=== PATIENT | female | born 1960 | race Asian ===

== ENCOUNTER 2022-02-07 14:15 | Emergency (ER) | payer OTHER, SELFPAY ==
[2022-02-07] VITALS (8 sets, daily range): BP systolic 122–204; BP diastolic 60–98; PULSE 78–98; RESP 16–24; TEMP 36.6; O2SAT 97–100
--- NOTE | 2022-02-07 14:23 | DI.RAD.S_ITS ---
PROCEDURE: XR CHEST 1V INDICATIONS: Shortness of breath TECHNIQUE: One view of the chest was acquired. COMPARISON: [facility], , CHEST 2 VIEW, 09/28/2015, 0:43. FINDINGS: Surgical changes and devices: None. Lungs and pleura: Lung volumes are slightly low. No dense consolidation or pleural effusions. Mediastinum: Heart size is at the upper limit of normal. Bones and chest wall: Scoliosis. Partially visualized gas distended loops of stomach and bowel. IMPRESSION: No acute radiographic abnormality. Low lung volumes. Partially seen prominent bowel gas. Dictated by: Cristo Rollins M.D. on 02/07/2022 at 15:21 Approved by: Cristo Rollins M.D. on 02/07/2022 at 15:22
--- NOTE | 2022-02-07 15:09 | PC.NURSE ---
Addendum entered by Chuck Thomas R.N. 02/07/22 15:11: Pt also has hx of asthma, no relief with her inhaler. RR 20. 98% on RA. Non-labored breathing. Original Note: Pt reports recent travel to [facility] with being sick since her return on 01/23/22. Pt has hx of htn, episodes of fast heart rate and type 2 diabetes.
[2022-02-07 15:16] LABS: Add Manual Diff / Slide Review NO; Basophils Absolute Auto 100 /uL (0-100); Basophils Percent Auto 0.9 % (0-2); Eosinophils Absolute Auto 200 /uL (0-450); Eosinophils Percent Auto 2.9 % (2-4); Hematocrit 36.2 % (36-46); Hemoglobin 12.3 g/dL (12.0-16.0); Lymphocytes Absolute Auto 2100 /uL (1100-4500); Lymphocytes Percent Auto 32.2 % (25-40); Mean Corpuscular Hemoglobin 29.5 PG (26-34); Mean Corpuscular Volume 86.7 fL (80-100); Monocytes Absolute Auto 500 /uL (0-900); Monocytes Percent Auto 7.5 % (3-14); Neutrophils Absolute Auto 3600 /uL (1500-7000); Neutrophils Percent Auto 56.5 % (50-75); Platelet Count 337 X10^3/uL (150-400); Red Blood Cell Count 4.18 X10^6/uL (4.0-5.2); Red Cell Distribution Width 13.6 % (11.6-14.8); White Blood Cell Count 6.4 X10^3/uL (4.5-11.0)
--- NOTE | 2022-02-07 15:24 | ED.GENADULT ---
HPI - General Adult General Chief complaint: Shortness of Breath/Dyspnea Stated complaint: coughing/inhaler not working/SOB/itchy throat Time Seen by Provider: 02/07/22 14:31 Source: patient and family Mode of arrival: Ambulatory History of Present Illness HPI narrative: Patient is a 61-year-old female. History of asthma. Is here for evaluation of wheezing, sinus congestion, postnasal drip, headache, body aches, itchy throat, shortness of breath. She is been using her albuterol inhaler which has not seemed to be working. Also having fevers. No skin rashes. Related Data Previous Rx's Medication Instructions Recorded prednisone 20 mg tablet 20 mg PO DAILY 6 days #6 tabs 02/07/22 Allergies Allergy/AdvReac Type Severity Reaction Status Date / Time erythromycin base Allergy Mild RASH Unverified 06/21/17 12:36 [From ERYTHROCIN] repaglinide [From PRANDIN] Allergy Mild UNSURE Unverified 06/21/17 12:36 Sulfa (Sulfonamide Allergy Mild HIVES Unverified 06/21/17 12:36 Antibiotics) [SULFA (SULFONAMIDE ANTIBIOTICS)] Review of Systems Review of Systems ROS Unobtainable: All systems reviewed & are unremarkable except as noted in HPI and below Patient History Medical History Asthma Social History Smoking Status: Never smoker Smoking Status: Never smoker alcohol intake frequency: a few times a month Substance Use Type: does not use Exam Initial Vital Signs Initial Vital Signs: Vital Signs Temperature 98 F 02/07/22 14:23 Pulse Rate 98 H 02/07/22 14:23 Respiratory Rate 18 02/07/22 14:23 Blood Pressure 204/98 H 02/07/22 14:23 Pulse Oximetry 98 02/07/22 14:23 Oxygen Delivery Method 02/07/22 14:23 Const General: cooperative, comfortable and No ill appearing HENMT Head: normal to inspection and normocephalic Mouth: oral mucosae normal Throat: posterior oropharynx normal Resp Effort & Inspection: normal respiratory effort Auscultation: clear to auscultation bilaterally Cardio Rate: regular rate Rhythm: regular rhythm GI Inspection: normal to inspection Skin General: no rashes or lesions noted Neuro General: patient alert, patient awake and moves all extremities Extrem General: normal to inspection and capillary refill normal Psych Appearance: grossly normal and well kempt Course Orders Ordered: ED Orders 02/07/22 14:23 XR chest 1V Stat EKG-12 Lead Stat Measure peak expiratory flow ONCE RT Consult Eval and Treat NOW 02/07/22 15:04 Complete Blood Count AUTO DIFF Stat Comprehensive Metabolic Panel Stat Covid-19 + FLU A/B + RSV - PCR Stat Troponin I Stat Prednisone (Prednisone 20 Mg Tablet) 20 mg PO NOW ONE Stop: 02/07/22 16:32 Vital Signs Vital signs: Vital Signs - 8 hr 02/07/22 14:23 02/07/22 14:59 02/07/22 15:00 Temperature 98 F Pulse Rate 98 H Respiratory Rate 18 Blood Pressure 204/98 H 180/77 H 174/79 H Pulse Oximetry 98 Oxygen Delivery Method Room Air 02/07/22 15:01 Temperature Pulse Rate 86 Respiratory Rate 16 Blood Pressure Pulse Oximetry 98 Oxygen Delivery Method Room Air Medical Decision Making Lab Data Lab results reviewed: Yes I reviewed the patient's lab results. Result diagrams: 02/07/22 15:04 02/07/22 15:04 Labs: Lab Results 02/07/22 02/07/22 02/07/22 Range/Units 15:04 15:04 15:04 WBC 6.4 (4.5-11.0) X10^3/uL RBC 4.18 (4.0-5.2) X10^6/uL Hgb 12.3 (12.0-16.0) g/dL Hct 36.2 (36-46) % MCV 86.7 (80-100) fL MCH 29.5 (26-34) PG MCHC 34.0 (30-36) % RDW 13.6 (11.6-14.8) % Plt Count 337 (150-400) X10^3/uL Neut % (Auto) 56.5 (50-75) % Lymph % (Auto) 32.2 (25-40) % [place]wsley % (Auto) 7.5 (3-14) % Eos % (Auto) 2.9 (2-4) % Baso % (Auto) 0.9 (0-2) % Neut # (Auto) 3600 (7081-3139) /uL Lymph # (Auto) 2100 (1383-8889) /uL [place]wsley # (Auto) 500 (0-900) /uL Eos # (Auto) 200 (0-450) /uL Baso # (Auto) 100 (0-100) /uL Sodium 137 (137-145) mmol/L Potassium 4.0 (3.4-5.1) mmol/L Chloride 99 (98-107) mmol/L Carbon Dioxide 31 (22-32) mmol/L BUN 18 H (7-17) mg/dL Creatinine 0.61 (0.52-1.04) mg/dL Estimated GFR > 60 (>60) mL/min BUN/Creatinine Ratio 29.5 H (6-22) Glucose 233 H (80-110) mg/dL Calcium 9.0 (8.4-10.2) mg/dL Total Bilirubin 0.2 (0.2-1.3) mg/dL AST 34 (14-36) IU/L ALT 34 (<35) IU/L Alkaline Phosphatase 66 (38-126) U/L Troponin I < 0.012 (0.01-0.034) ng/mL NT-Pro-B Natriuret Pep Cancelled Total Protein 7.4 (6.3-8.2) g/dL Albumin 4.1 (3.5-5.0) g/dL Globulin 3.3 (1.7-4.1) g/dL Albumin/Globulin Ratio 1.2 (1.0-2.8) SARS-CoV-2 (PCR) Negative (Negative) Influenza A (RT-PCR) Flu a negative (NEGATIVE) Influenza B (RT-PCR) Flu b negative (NEGATIVE) RSV (PCR) Negative (Negative) Imaging Data Chest x-ray: Radiologist's Impression: [address] [address] XRay Report Signed Patient: An Cueva MR#: [id number] : 1960 Acct:[id number] Age/Sex: 61 / F Date of Service: 02/07/22 Loc: ED Accession Number: [id number] ?? Procedure: XR chest 1V Ordering Provider: Bryce Hayes D.O. PROCEDURE:? XR CHEST 1V ? INDICATIONS:? Shortness of breath ? TECHNIQUE:? One view of the chest was acquired.? ? COMPARISON:? [facility], CR, CHEST 2 VIEW, 09/28/2015, 0:43. ? FINDINGS:? ? Surgical changes and devices:? None.? ? Lungs and pleura:? Lung volumes are slightly low.? No dense consolidation or pleural effusions. ? Mediastinum:? Heart size is at the upper limit of normal. ? Bones and chest wall:? Scoliosis.? Partially visualized gas distended loops of stomach and bowel. ? IMPRESSION:? No acute radiographic abnormality.? Low lung volumes.? Partially seen prominent bowel gas. ? ? Dictated by: Cristo Rollins M.D. on 02/07/2022 at 15:21 ? ? Approved by: Cristo Rollins M.D. on 02/07/2022 at 15:22?? ECG Data Attestation: I personally reviewed and interpreted this ECG as follows: Interpretation: Sinus rhythm Ventricular rate is 76 Normal axis Normal QRS Normal QTC No ST T wave changes MDM Narrative Medical decision making narrative: Lungs are clear, chest x-ray is unremarkable. Is well-appearing. He does have a history of asthma. No indication for antibiotics. Plan will be is to sent home with a couple days of steroids. She will continue to take the rest for medications as directed. She was given return precautions. She expressed understanding and agreement. Discharge Plan Departure Patient Disposition: Home Clinical Impression: Asthma Instructions: DI for Asthma -- Adult Activity Restrictions/Additional Instructions: Recommend that you continue to take all of your medications as directed. A prescription for steroids was sent to the [facility] pharmacy per your request. Start taking them tomorrow. Return to the emergency department for any new symptoms. Prescriptions: New prednisone 20 mg tablet 20 mg PO DAILY 6 Days Qty: 6 0RF Referrals: Provider,Maximo RAO [Primary Care Provider] -
[2022-02-07 15:35] LABS: Alanine Aminotransferase 34 IU/L (<35); Albumin 4.1 g/dL (3.5-5.0); Albumin Globulin Ratio 1.2 (1.0-2.8); Alkaline Phosphatase 66 U/L (38-126); Aspartate Aminotransferase 34 IU/L (14-36); BUN Creatinine Ratio 29.5 (6-22); Bilirubin Total 0.2 mg/dL (0.2-1.3); Blood Urea Nitrogen 18 mg/dL (7-17); Carbon Dioxide 31 mmol/L (22-32); Chloride 99 mmol/L (98-107); Estimated Glomerular Filt Rate > 60 mL/min (>60); Globulin 3.3 g/dL (1.7-4.1); Glucose 233 mg/dL (80-110); HEMOLYSIS < 15 (0-50); Sodium 137 mmol/L (137-145); Total Protein 7.4 g/dL (6.3-8.2)
[2022-02-07 15:45] LABS: Troponin I < 0.012 ng/mL (0.01-0.034)
[2022-02-07 15:57] LABS: COVID-19 CEPHEID 4-PLEX PCR Negative (Negative); Influenza A - CEPHEID Flu A NEGATIVE (NEGATIVE); Influenza B - CEPHEID Flu B NEGATIVE (NEGATIVE); Respiratory Syncytial Virus Negative (Negative)
[2022-02-07] MEDS: predniSONE 20 MG TABLET PO (16:43)
== END 2022-02-07 16:49 | disposition home or self-care (01) ==
PROVIDERS: Emergency Provider Emergency Medicine; Family Provider Internal Medicine
DX: J45.909 Unspecified asthma, uncomplicated (principal); Z20.822 Contact with and (suspected) exposure to COVID-19
CPT/HCPCS: 0241U; 36415; 71045; 80053; 84484; 85025; 93005; 99284

== ENCOUNTER 2022-03-24 15:36 | Observation (INO) | payer OTHER, SELFPAY ==
[2022-03-24] VITALS (13 sets, daily range): BP systolic 140–199; BP diastolic 61–88; PULSE 74–87; RESP 15–17; TEMP 36.1–36.5; O2SAT 98–100; BMI 23.6; BMI 22.4
[2022-03-24 16:06] LABS: Add Manual Diff / Slide Review NO; Basophils Absolute Auto 100 /uL (0-100); Basophils Percent Auto 1.3 % (0-2); Eosinophils Absolute Auto 200 /uL (0-450); Eosinophils Percent Auto 2.5 % (2-4); Hematocrit 37.5 % (36-46); Hemoglobin 12.7 g/dL (12.0-16.0); Lymphocytes Absolute Auto 3100 /uL (1100-4500); Lymphocytes Percent Auto 42.1 % (25-40); Mean Corpuscular HGB Conc 33.7 % (30-36); Monocytes Absolute Auto 500 /uL (0-900); Monocytes Percent Auto 7.1 % (3-14); Neutrophils Absolute Auto 3500 /uL (1500-7000); Platelet Count 339 X10^3/uL (150-400); Red Blood Cell Count 4.36 X10^6/uL (4.0-5.2); Red Cell Distribution Width 13.2 % (11.6-14.8); White Blood Cell Count 7.4 X10^3/uL (4.5-11.0)
[2022-03-24 16:07] LABS: Prothrombin Time 11.1 SECONDS (10.1-12.7)
[2022-03-24 16:10] LABS: PTT Partial Thromboplastin Tim 32 SECONDS (26-36)
[2022-03-24 16:12] LABS: Alanine Aminotransferase 28 IU/L (<35); Albumin 4.3 g/dL (3.5-5.0); Albumin Globulin Ratio 1.2 (1.0-2.8); Alkaline Phosphatase 66 U/L (38-126); Aspartate Aminotransferase 36 IU/L (14-36); Bilirubin Total 0.3 mg/dL (0.2-1.3); Blood Urea Nitrogen 16 mg/dL (7-17); Carbon Dioxide 26 mmol/L (22-32); Chloride 96 mmol/L (98-107); Estimated Glomerular Filt Rate > 60 mL/min (>60); Globulin 3.5 g/dL (1.7-4.1); Glucose 347 mg/dL (80-110); HEMOLYSIS < 15 (0-50); Potassium 3.9 mmol/L (3.4-5.1); Sodium 134 mmol/L (137-145); Total Protein 7.8 g/dL (6.3-8.2)
[2022-03-24] MEDS: ONDANSETRON 4 MG/2 ML INJ IV (16:34)
[2022-03-24] MEDS: PANTOPRAZOLE 40 MG VIAL 80 MG IV (16:34)
--- NOTE | 2022-03-24 16:45 | DI.CT.S_ITS ---
PROCEDURE: CT ABDOMEN PELVIS W CON INDICATIONS: R sided abdominal w/ back pain TECHNIQUE: After the administration of intravenous contrast, axial sections acquired from the lung bases to the pubic symphysis. Coronal and sagittal reformats were performed. For radiation dose reduction, the following was used: automated exposure control, adjustment of mA and/or kV according to patient size. COMPARISON: None. FINDINGS: Image quality: Excellent. Lung bases: Lung bases are clear. Small hiatal hernia. Heart: Heart size is normal. Coronary atherosclerotic vascular calcifications are noted. ABDOMEN: Liver: Unremarkable. Gallbladder: Unremarkable. Biliary ducts: Unremarkable. Pancreas: Unremarkable. Spleen: Unremarkable. Adrenal Glands: Unremarkable. Kidneys and Ureters: Kidneys are symmetric in size and enhancement, and there is no obstructive uropathy. No perinephric inflammatory changes. Ureters are normal in course and caliber. Stomach and Bowel: Stomach, small bowel loops, and colon are unremarkable. Colonic diverticulosis without acute diverticulitis. The visualized appendix appears mildly dilated in diameter measuring approximately 11 mm. Mild wall thickening. This measures approximately 3 mm in thickness. No significant periappendiceal stranding. Hyperdense material may represent small appendicoliths. Peritoneum: No abnormal intraperitoneal fluid. No free air. Ventral Wall: No hernia. Abdominal Nodes: No retroperitoneal or mesenteric adenopathy by size criteria. Vessels: Scattered atherosclerotic calcifications of the abdominal aorta and iliac vessels without aneurysmal dilatation. The inferior vena cava appears patent. PELVIS: Pelvic Organs: Unremarkable. Bladder: Unremarkable. Pelvic Nodes: No enlarged lymph nodes. Miscellaneous: No inguinal hernias are seen. Bones: No acute vertebral body compression fractures. Multilevel spondylitic changes throughout the imaged spine. No suspicious osseous lesions. Levoscoliosis. IMPRESSION: Mildly dilated appendix with appendiceal wall thickening. Minimal periappendiceal stranding. Findings may represent early developing acute appendicitis. Otherwise, no acute abnormalities identified in the abdomen or pelvis. Other chronic findings as above. Dictated by: Abel Estevez M.D. on 03/24/2022 at 18:10 Approved by: Abel Estevez M.D. on 03/24/2022 at 18:17
--- NOTE | 2022-03-24 16:49 | DI.CT.S_ITS ---
PROCEDURE: CT HEAD/BRAIN WO CON INDICATIONS: Dizziness TECHNIQUE: Noncontrast 4.5 mm thick angled axial sections acquired from the foramen magnum to the vertex, with coronal and sagittal reformats. For radiation dose reduction, the following was used: automated exposure control, adjustment of mA and/or kV according to patient size. COMPARISON: None. FINDINGS: Image quality: Excellent. CSF spaces: Basal cisterns are patent. No extra-axial fluid collections. The ventricles are symmetric in size and shape. Brain: No intracranial bleeds or masses. There is cerebral volume loss for age, with resultant ventricular and sulcal prominence. There are periventricular and deep white matter chronic small vessel ischemic changes. There is intracranial internal carotid artery atherosclerosis. Skull and face: Calvarium and visualized facial bones appear intact, without suspicious lesions. Artificial left globe is noted. Sinuses: Visualized sinuses and mastoids are clear. IMPRESSION: 1. CT head without acute intracranial abnormalities or acute calvarial fractures. 2. Age-related senescent changes and sequela of chronic small vessel ischemic disease. Dictated by: Abel Estevez M.D. on 03/24/2022 at 17:58 Approved by: Abel Estevez M.D. on 03/24/2022 at 17:59
--- NOTE | 2022-03-24 17:18 | ED.DIZZY ---
HPI - Dizziness <Sancho Weeks PA-C - Last Filed: 03/24/22 19:07> General Chief Complaint: Dizziness Stated Complaint: VERTIGO ISSUES Time Seen by Provider: 03/24/22 16:33 Source: patient Mode of arrival: Ambulatory History of Present Illness HPI Narrative: This is a 61-year-old female with a history of hypertension and asthma presents to the emergency department due to right-sided abdominal pain, back pain, vertigo. She states that the abdominal pain and back pain have been present for the last week intermittently. She also states that she has had vertigo in the past but is also complaining of this. States that she primarily feels lightheaded. Denies any nausea, vomiting, weakness, slurred speech, diarrhea, constipation, or any other concerning signs or symptoms. Patient states she is been taking your home blood pressure medications as prescribed. Related Data Home Medications Medication Instructions Recorded Confirmed albuterol sulfate 90 mcg/actuation 1 puff inhalation DAILY 03/24/22 03/24/22 aerosol inhaler (ProAir HFA) aspirin 81 mg tablet,delayed 81 mg PO DAILY 03/24/22 03/24/22 release brimonidine 0.1 % eye drops 1 drp EYE-BOTH DAILY 03/24/22 03/24/22 (Alphagan P) ciclopirox 8 % topical solution 1 applic topical DAILY rash 03/24/22 03/24/22 insulin glargine 100 unit/mL (3 See Rx Instructions .Route .COMPLEX 03/24/22 03/24/22 mL) subcutaneous pen (Lantus Solostar U-100 Insulin) lisinopril 40 mg tablet 40 mg PO DAILY 03/24/22 03/24/22 loratadine 10 mg tablet 10 mg PO DAILY 03/24/22 03/24/22 ofloxacin 0.3 % eye drops 1 drp EYE-BOTH DAILY 03/24/22 03/24/22 omeprazole 20 mg capsule,delayed 20 mg PO DAILY 03/24/22 03/24/22 release Allergies Allergy/AdvReac Type Severity Reaction Status Date / Time erythromycin base Allergy Mild RASH Verified 03/24/22 15:40 [From ERYTHROCIN] repaglinide [From PRANDIN] Allergy Mild UNSURE Verified 03/24/22 15:40 Sulfa (Sulfonamide Allergy Mild HIVES Verified 03/24/22 15:40 Antibiotics) [SULFA (SULFONAMIDE ANTIBIOTICS)] Review of Systems <Sancho Weeks PA-C - Last Filed: 03/24/22 19:07> Review of Systems Narrative: GENERAL: Denies chills, fatigue, malaise, fever, sweats. HEENT: Denies sinus pain, ear pain, sore throat, difficulty swallowing, dizziness. RESPIRATORY: Denies dyspnea, cough, wheezing, hemoptysis, sputum. CARDIOVASCULAR: Denies chest pain, palpitations, orthopnea, edema, GASTROINTESTINAL: Reports abdominal pain, Denies nausea, vomiting, diarrhea, constipation, melena. : Denies dysuria, frequency, incontinence, hematuria, urinary retention. MUSCULOSKELETAL: Reports back pain, denies weakness, joint pain, or bony pain SKIN: Denies rash, skin lesions, or other NEUROLOGIC: Reports dizziness and lightheadedness, Denies weakness, headache, numbness, change in speech, confusion, seizures, incoordination. PSYCHIATRIC: No concerning psychosocial issues. 12 point review of systems is negative except for those stated above Patient History <Sancho Weeks PA-C - Last Filed: 03/24/22 19:07> Medical History Asthma Surgical History (Updated 03/25/22 @ 06:27 by EHSAN Petty) History of cataract surgery Family History (Updated 03/25/22 @ 06:28 by EHSAN Petty) Father Diabetes mellitus Mother Diabetes mellitus Social History household members: spouse Smoking Status: Never smoker alcohol intake: current Smoking Status: Never smoker alcohol intake frequency: a few times a month Substance Use Type: does not use Exam <Sancho Weeks PA-C - Last Filed: 03/24/22 19:07> Narrative Exam Narrative: GENERAL: [] year old patient appears stated age. Well-developed patient, in mild distress. HEAD: Atraumatic. Normocephalic. EYES: Pupils equal round and reactive. Extraocular motions intact. No scleral icterus. No injection or drainage. ENT: Nose without bleeding, purulent drainage. Throat without erythema, tonsillar hypertrophy or exudate. Airway patent. NECK: Trachea midline. Non tender CARDIOVASCULAR: Regular rate and rhythm without murmurs, gallops, or rubs. RESPIRATORY: Clear to auscultation. Breath sounds equal bilaterally. No wheezes, rales, or rhonchi. GASTROINTESTINAL: Moderate right-sided abdominal tenderness to palpation, lumbar back tenderness to palpation EXTREMITIES: No edema or joint tenderness. BACK: Nontender without deformity or crepitance. No flank tenderness. NEURO: AOx3. Cranial nerves 2-12 intact. No focal weakness. SKIN: No rash or erythema of visible areas Initial Vital Signs Initial Vital Signs: Vital Signs Temperature 97.7 F 03/24/22 15:40 Pulse Rate 81 03/24/22 15:40 Respiratory Rate 15 03/24/22 15:40 Blood Pressure 199/88 H 03/24/22 15:40 Pulse Oximetry 100 03/24/22 15:40 Oxygen Delivery Method 03/24/22 15:40 <Jazmyn Cuevas DO - Last Filed: 03/25/22 08:00> Initial Vital Signs Initial Vital Signs: Vital Signs Temperature 97.7 F 03/24/22 15:40 Pulse Rate 81 03/24/22 15:40 Respiratory Rate 15 03/24/22 15:40 Blood Pressure 199/88 H 03/24/22 15:40 Pulse Oximetry 100 03/24/22 15:40 Oxygen Delivery Method 03/24/22 15:40 Course <Sancho Weeks PA-C - Last Filed: 03/24/22 19:07> Orders Ordered: ED Orders 03/25/22 05:58 CBC Auto Diff [Complete Blood Count AUTO DIFF] DAILY 03/26/22 05:00 CBC Auto Diff [Complete Blood Count AUTO DIFF] DAILY 03/27/22 05:00 CBC Auto Diff [Complete Blood Count AUTO DIFF] DAILY Acetaminophen (Acetaminophen 325 Mg Tablet) 650 mg PO Q6H PRN PRN Reason: Fever/Mild Pain (1-3) Albuterol (Albuterol 2.5 Mg/3 Ml Neb (Adult)) 2.5 mg INH RTQ4HR PRN PRN Reason: Shortness Of Breath Or Wheezing Brimonidine Tartrate (Brimonidine 0.2% Ophth 5 Ml) 1 drops EYE-BOTH DAILY [facility] Dextrose (Dextrose 50 % In Water 25 Gm/50 Ml Syringe) 25 gm IV PRN PRN PRN Reason: Hypoglycemia Hydromorphone HCl (Hydromorphone 0.5 Mg Inj) 0.5 mg IV Q4H PRN PRN Reason: Pain, Moderate (4-6) Piperacillin Sod/Tazobactam (Sod 3.375 gm/ Sodium Chloride) 100 mls @ 25 mls/hr IV Q8H [facility] Last Infusion: 03/25/22 07:56 Dose: 0 mls/hr Documented By: Admin: 03/25/22 03:26 Dose: 25 mls/hr Documented By: Insulin Glargine (Insulin Glargine 100 Unit/Ml 3ml Pen) 40 unit SUBCUT BEDTIME [facility] Last Admin: 03/24/22 23:17 Dose: 40 unit Documented By: Co-signed By: NOEMI Insulin Human Lispro (Insulin Lispro 100 Unit/Ml 3ml Vial) 0 unit SUBCUT ACHS [facility]; Protocol Last Admin: 03/25/22 06:47 Dose: Not Given Documented By: Admin: 03/24/22 22:36 Dose: 2 unit Documented By: Co-signed By: NOEMI Lisinopril (Lisinopril 20 Mg Tablet) 40 mg PO DAILY [facility] Melatonin (Melatonin 3 Mg Tablet) 6 mg PO BEDTIME PRN PRN Reason: Insomnia Naloxone HCl (Naloxone 0.4 Mg/Ml Vial) 0.2 mg IV Q2MIN PRN PRN Reason: Opiate Reversal Ondansetron HCl (Ondansetron 4 Mg/2 Ml Inj) 4 mg IV Q8HR PRN PRN Reason: Nausea And Vomiting Oxycodone HCl (Oxycodone Ir 5 Mg Tablet) 5 mg PO Q4HR PRN PRN Reason: Pain, Moderate (4-6) Polyethylene Glycol (Polyethylene Glycol 3350 17 Gm Powd.Pack) 17 gm PO DAILY PRN PRN Reason: Constipation Sennosides (Sennosides 8.6 Mg Tablet) 8.6 mg PO BID PRN PRN Reason: Constipation Discontinued Medications Albuterol (Albuterol Hfa Mdi 60 Puff/8 Gm Inhaler) 2 puff INH RTQ4HR PRN PRN Reason: Shortness Of Breath Or Wheezing Sodium Chloride (Normal Saline 0.9%) 1,000 mls @ 1,000 mls/hr IV BOLUS PRN PRN Reason: Fluid replacement Sodium Chloride (Normal Saline 0.9%) 1,000 mls @ 1,000 mls/hr IV BOLUS ONE Stop: 03/24/22 19:23 Last Infusion: 03/24/22 20:24 Dose: 0 mls/hr Documented By: Admin: 03/24/22 18:51 Dose: 1,000 mls/hr Documented By: RB Piperacillin Sod/Tazobactam (Sod 4.5 gm/ Sodium Chloride) 100 mls @ 200 mls/hr IV NOW ONE Stop: 03/24/22 18:47 Last Infusion: 03/24/22 19:57 Dose: 0 mls/hr Documented By: Admin: 03/24/22 19:14 Dose: 200 mls/hr Documented By: RB Sodium Chloride (Normal Saline 0.9%) 1,000 mls @ 100 mls/hr IV CONT FR[facility]ISCO Stop: 03/25/22 06:59 Last Admin: 03/24/22 22:09 Dose: 100 mls/hr Documented By: Insulin Glargine (Insulin Glargine 100 Unit/Ml 3ml Pen) 50 unit SUBCUT BID [facility] Labetalol HCl (Labetalol 20 Mg/4 Ml Syringe) 10 mg IV Q4HR PRN; Protocol PRN Reason: GivewhileNPOSBP>180,DBP>100 Lisinopril (Lisinopril 20 Mg Tablet) 40 mg PO NOW ONE Stop: 03/24/22 22:55 Last Admin: 03/24/22 23:16 Dose: 40 mg Documented By: Non-Formulary Medication (Brimonidine [Alphagan P]) 1 drop EYE-BOTH DAILY [facility] Ondansetron HCl (Ondansetron 4 Mg/2 Ml Inj) 4 mg IV NOW PRN PRN Reason: Nausea And Vomiting Last Admin: 03/24/22 16:34 Dose: 4 mg Documented By: RB Ondansetron HCl (Ondansetron 4 Mg Odt) 4 mg SL NOW PRN PRN Reason: Nausea And Vomiting Pantoprazole Sodium (Pantoprazole 40 Mg Vial) 80 mg IV NOW ONE Stop: 03/24/22 15:45 Last Admin: 03/24/22 16:34 Dose: 80 mg Documented By: RB Consultations Consultation #1: [id number]: Spoke with Dr. Mojica, general surgeon, who advised admission to Medicine for evaluation for possible appendectomy tomorrow 190: Spoke with hospitalist who kindly accepted patient for admission. Vital Signs Vital signs: Vital Signs - 8 hr 03/24/22 15:40 03/24/22 16:44 03/24/22 16:44 Temperature 97.7 F Pulse Rate 81 83 Respiratory Rate 15 Blood Pressure 199/88 H 162/78 H Pulse Oximetry 100 99 Oxygen Delivery Method Room Air 03/24/22 17:00 03/24/22 17:00 03/24/22 17:30 Temperature Pulse Rate 77 87 Respiratory Rate Blood Pressure 140/67 Pulse Oximetry 100 99 Oxygen Delivery Method <Jazmyn Cuevas, - Last Filed: 03/25/22 08:00> Orders Ordered: ED Orders 03/25/22 05:58 CBC Auto Diff [Complete Blood Count AUTO DIFF] DAILY 03/26/22 05:00 CBC Auto Diff [Complete Blood Count AUTO DIFF] DAILY 03/27/22 05:00 CBC Auto Diff [Complete Blood Count AUTO DIFF] DAILY Acetaminophen (Acetaminophen 325 Mg Tablet) 650 mg PO Q6H PRN PRN Reason: Fever/Mild Pain (1-3) Albuterol (Albuterol 2.5 Mg/3 Ml Neb (Adult)) 2.5 mg INH RTQ4HR PRN PRN Reason: Shortness Of Breath Or Wheezing Brimonidine Tartrate (Brimonidine 0.2% Ophth 5 Ml) 1 drops EYE-BOTH DAILY [facility] Dextrose (Dextrose 50 % In Water 25 Gm/50 Ml Syringe) 25 gm IV PRN PRN PRN Reason: Hypoglycemia Hydromorphone HCl (Hydromorphone 0.5 Mg Inj) 0.5 mg IV Q4H PRN PRN Reason: Pain, Moderate (4-6) Piperacillin Sod/Tazobactam (Sod 3.375 gm/ Sodium Chloride) 100 mls @ 25 mls/hr IV Q8H [facility] Last Infusion: 03/25/22 07:56 Dose: 0 mls/hr Documented By: Admin: 03/25/22 03:26 Dose: 25 mls/hr Documented By: Insulin Glargine (Insulin Glargine 100 Unit/Ml 3ml Pen) 40 unit SUBCUT BEDTIME [facility] Last Admin: 03/24/22 23:17 Dose: 40 unit Documented By: Co-signed By: NOEMI Insulin Human Lispro (Insulin Lispro 100 Unit/Ml 3ml Vial) 0 unit SUBCUT ACHS [facility]; Protocol Last Admin: 03/25/22 06:47 Dose: Not Given Documented By: Admin: 03/24/22 22:36 Dose: 2 unit Documented By: Co-signed By: NOEMI Lisinopril (Lisinopril 20 Mg Tablet) 40 mg PO DAILY [facility] Melatonin (Melatonin 3 Mg Tablet) 6 mg PO BEDTIME PRN PRN Reason: Insomnia Naloxone HCl (Naloxone 0.4 Mg/Ml Vial) 0.2 mg IV Q2MIN PRN PRN Reason: Opiate Reversal Ondansetron HCl (Ondansetron 4 Mg/2 Ml Inj) 4 mg IV Q8HR PRN PRN Reason: Nausea And Vomiting Oxycodone HCl (Oxycodone Ir 5 Mg Tablet) 5 mg PO Q4HR PRN PRN Reason: Pain, Moderate (4-6) Polyethylene Glycol (Polyethylene Glycol 3350 17 Gm Powd.Pack) 17 gm PO DAILY PRN PRN Reason: Constipation Sennosides (Sennosides 8.6 Mg Tablet) 8.6 mg PO BID PRN PRN Reason: Constipation Discontinued Medications Albuterol (Albuterol Hfa Mdi 60 Puff/8 Gm Inhaler) 2 puff INH RTQ4HR PRN PRN Reason: Shortness Of Breath Or Wheezing Sodium Chloride (Normal Saline 0.9%) 1,000 mls @ 1,000 mls/hr IV BOLUS PRN PRN Reason: Fluid replacement Sodium Chloride (Normal Saline 0.9%) 1,000 mls @ 1,000 mls/hr IV BOLUS ONE Stop: 03/24/22 19:23 Last Infusion: 03/24/22 20:24 Dose: 0 mls/hr Documented By: Admin: 03/24/22 18:51 Dose: 1,000 mls/hr Documented By: MAGNOLIA Piperacillin Sod/Tazobactam (Sod 4.5 gm/ Sodium Chloride) 100 mls @ 200 mls/hr IV NOW ONE Stop: 03/24/22 18:47 Last Infusion: 03/24/22 19:57 Dose: 0 mls/hr Documented By: Admin: 03/24/22 19:14 Dose: 200 mls/hr Documented By: MAGNOLIA Sodium Chloride (Normal Saline 0.9%) 1,000 mls @ 100 mls/hr IV CONT [facility]CO Stop: 03/25/22 06:59 Last Admin: 03/24/22 22:09 Dose: 100 mls/hr Documented By: Insulin Glargine (Insulin Glargine 100 Unit/Ml 3ml Pen) 50 unit SUBCUT BID [facility] Labetalol HCl (Labetalol 20 Mg/4 Ml Syringe) 10 mg IV Q4HR PRN; Protocol PRN Reason: GivewhileNPOSBP>180,DBP>100 Lisinopril (Lisinopril 20 Mg Tablet) 40 mg PO NOW ONE Stop: 03/24/22 22:55 Last Admin: 03/24/22 23:16 Dose: 40 mg Documented By: Non-Formulary Medication (Brimonidine [Alphagan P]) 1 drop EYE-BOTH DAILY [facility] Ondansetron HCl (Ondansetron 4 Mg/2 Ml Inj) 4 mg IV NOW PRN PRN Reason: Nausea And Vomiting Last Admin: 03/24/22 16:34 Dose: 4 mg Documented By: MAGNOLIA Ondansetron HCl (Ondansetron 4 Mg Odt) 4 mg SL NOW PRN PRN Reason: Nausea And Vomiting Pantoprazole Sodium (Pantoprazole 40 Mg Vial) 80 mg IV NOW ONE Stop: 03/24/22 15:45 Last Admin: 03/24/22 16:34 Dose: 80 mg Documented By: MAGNOLIA Vital Signs Vital signs: Vital Signs - 8 hr 03/24/22 15:40 03/24/22 16:44 03/24/22 16:44 Temperature 97.7 F Pulse Rate 81 83 Respiratory Rate 15 Blood Pressure 199/88 H 162/78 H Pulse Oximetry 100 99 Oxygen Delivery Method Room Air 03/24/22 17:00 03/24/22 17:00 03/24/22 17:30 Temperature Pulse Rate 77 87 Respiratory Rate Blood Pressure 140/67 Pulse Oximetry 100 99 Oxygen Delivery Method MDM - Dizziness <Sancho Weeks PA-C - Last Filed: 03/24/22 19:07> Lab Data Result diagrams: 03/25/22 05:58 03/25/22 05:58 Labs: Lab Results 03/24/22 03/24/22 03/24/22 Range/Units 15:50 15:50 15:50 WBC 7.4 (4.5-11.0) X10^3/uL RBC 4.36 (4.0-5.2) X10^6/uL Hgb 12.7 (12.0-16.0) g/dL Hct 37.5 (36-46) % MCV 86.0 (80-100) fL MCH 29.0 (26-34) PG MCHC 33.7 (30-36) % RDW 13.2 (11.6-14.8) % Plt Count 339 (150-400) X10^3/uL Neut % (Auto) 47.0 L (50-75) % Lymph % (Auto) 42.1 H (25-40) % [place] % (Auto) 7.1 (3-14) % Eos % (Auto) 2.5 (2-4) % Baso % (Auto) 1.3 (0-2) % Neut # (Auto) 3500 (0858-3274) /uL Lymph # (Auto) 3100 (9521-3984) /uL [place] # (Auto) 500 (0-900) /uL Eos # (Auto) 200 (0-450) /uL Baso # (Auto) 100 (0-100) /uL PT 11.1 (10.1-12.7) SECONDS INR 1.0 (0.9-1.3) APTT 32 (26-36) SECONDS Sodium 134 L (137-145) mmol/L Potassium 3.9 (3.4-5.1) mmol/L Chloride 96 L (98-107) mmol/L Carbon Dioxide 26 (22-32) mmol/L BUN 16 (7-17) mg/dL Creatinine 0.47 L (0.52-1.04) mg/dL Estimated GFR > 60 (>60) mL/min BUN/Creatinine Ratio 34.0 H (6-22) Glucose 347 H (80-110) mg/dL Hemoglobin A1c (4.0-6.0) % Calcium 9.0 (8.4-10.2) mg/dL Magnesium (1.6-2.3) mg/dL Total Bilirubin 0.3 (0.2-1.3) mg/dL AST 36 (14-36) IU/L ALT 28 (<35) IU/L Alkaline Phosphatase 66 (38-126) U/L Troponin I (0.01-0.034) ng/mL Total Protein 7.8 (6.3-8.2) g/dL Albumin 4.3 (3.5-5.0) g/dL Globulin 3.5 (1.7-4.1) g/dL Albumin/Globulin Ratio 1.2 (1.0-2.8) Lipase (23-300) U/L Ketones (<0.27) mmol/L Blood Type Antibody Screen 03/24/22 03/24/22 03/24/22 Range/Units 15:50 15:50 15:50 WBC (4.5-11.0) X10^3/uL RBC (4.0-5.2) X10^6/uL Hgb (12.0-16.0) g/dL Hct (36-46) % MCV (80-100) fL MCH (26-34) PG MCHC (30-36) % RDW (11.6-14.8) % Plt Count (150-400) X10^3/uL Neut % (Auto) (50-75) % Lymph % (Auto) (25-40) % [place] % (Auto) (3-14) % Eos % (Auto) (2-4) % Baso % (Auto) (0-2) % Neut # (Auto) (7285-8530) /uL Lymph # (Auto) (1188-3429) /uL [place] # (Auto) (0-900) /uL Eos # (Auto) (0-450) /uL Baso # (Auto) (0-100) /uL PT (10.1-12.7) SECONDS INR (0.9-1.3) APTT (26-36) SECONDS Sodium (137-145) mmol/L Potassium (3.4-5.1) mmol/L Chloride (98-107) mmol/L Carbon Dioxide (22-32) mmol/L BUN (7-17) mg/dL Creatinine (0.52-1.04) mg/dL Estimated GFR (>60) mL/min BUN/Creatinine Ratio (6-22) Glucose (80-110) mg/dL Hemoglobin A1c (4.0-6.0) % Calcium (8.4-10.2) mg/dL Magnesium (1.6-2.3) mg/dL Total Bilirubin (0.2-1.3) mg/dL AST (14-36) IU/L ALT (<35) IU/L Alkaline Phosphatase (38-126) U/L Troponin I < 0.012 (0.01-0.034) ng/mL Total Protein (6.3-8.2) g/dL Albumin (3.5-5.0) g/dL Globulin (1.7-4.1) g/dL Albumin/Globulin Ratio (1.0-2.8) Lipase 125 (23-300) U/L Ketones (<0.27) mmol/L Blood Type AB Positive Antibody Screen Negative 03/24/22 03/24/22 03/24/22 Range/Units 15:50 15:50 15:50 WBC (4.5-11.0) X10^3/uL RBC (4.0-5.2) X10^6/uL Hgb (12.0-16.0) g/dL Hct (36-46) % MCV (80-100) fL MCH (26-34) PG MCHC (30-36) % RDW (11.6-14.8) % Plt Count (150-400) X10^3/uL Neut % (Auto) (50-75) % Lymph % (Auto) (25-40) % [place] % (Auto) (3-14) % Eos % (Auto) (2-4) % Baso % (Auto) (0-2) % Neut # (Auto) (6014-8738) /uL Lymph # (Auto) (0329-1103) /uL [place] # (Auto) (0-900) /uL Eos # (Auto) (0-450) /uL Baso # (Auto) (0-100) /uL PT (10.1-12.7) SECONDS INR (0.9-1.3) APTT (26-36) SECONDS Sodium (137-145) mmol/L Potassium (3.4-5.1) mmol/L Chloride (98-107) mmol/L Carbon Dioxide (22-32) mmol/L BUN (7-17) mg/dL Creatinine (0.52-1.04) mg/dL Estimated GFR (>60) mL/min BUN/Creatinine Ratio (6-22) Glucose (80-110) mg/dL Hemoglobin A1c > 14.0 H (4.0-6.0) % Calcium (8.4-10.2) mg/dL Magnesium 1.9 (1.6-2.3) mg/dL Total Bilirubin (0.2-1.3) mg/dL AST (14-36) IU/L ALT (<35) IU/L Alkaline Phosphatase (38-126) U/L Troponin I (0.01-0.034) ng/mL Total Protein (6.3-8.2) g/dL Albumin (3.5-5.0) g/dL Globulin (1.7-4.1) g/dL Albumin/Globulin Ratio (1.0-2.8) Lipase (23-300) U/L Ketones 0.14 (<0.27) mmol/L Blood Type Antibody Screen Point of Care Testing Glucose POC 347 Urine Dip Bedside Urine Glucose 1000 mg/dl Bedside Urine Bilirubin - Negative Bedside Urine Ketone - Negative Urine Specific [place] 1.005 Bedside Urine Occult Blood - Negative Bedside Urine pH 6.0 Bedside Urine Protein - Negative Bedside Urine Urobilinogen - Negative Bedside Urine Nitrite - Negative Bedside Urine Leukocytes +/- [address] scan - head: Radiologist's Impression: [address] [address] [address] Scan Report Signed Patient: An Cueva MR#: [id number] : 1960 Acct:[id number] Age/Sex: 61 / F Date of Service: 03/24/22 Loc: ED Accession Number: [id number] ?? Procedure: CT head/brain wo con Ordering Provider: Sancho Weeks P.A-C PROCEDURE:? CT HEAD/BRAIN WO CON ? INDICATIONS:? Dizziness ? TECHNIQUE:? Noncontrast 4.5 mm thick angled axial sections acquired from the foramen magnum to the vertex, with coronal and sagittal reformats.? For radiation dose reduction, the following was used:? automated exposure control, adjustment of mA and/or kV according to patient size.? ? COMPARISON:? None. ? FINDINGS:? Image quality:? Excellent.? ? CSF spaces:? Basal cisterns are patent.? No extra-axial fluid collections.? The ventricles are symmetric in size and shape.? ? Brain:? No intracranial bleeds or masses.? There is cerebral volume loss for age, with resultant ventricular and sulcal prominence.? There are periventricular and deep white matter chronic small vessel ischemic changes.? There is intracranial internal carotid artery atherosclerosis.? ? Skull and face:? Calvarium and visualized facial bones appear intact, without suspicious lesions.? Artificial left globe is noted. ? Sinuses:? Visualized sinuses and mastoids are clear.? ? IMPRESSION:? 1. CT head without acute intracranial abnormalities or acute calvarial fractures. ? 2. Age-related senescent changes and sequela of chronic small vessel ischemic disease. ? Dictated by: Abel Estevez M.D. on 03/24/2022 at 17:58 ? ? Approved by: Abel Estevez M.D. on 03/24/2022 at 17:59 ? CT scan - abdomen/pelvis: Radiologist's Impression: [address] [address] [address] Scan Report Signed Patient: An Cueva MR#: [id number] : 1960 Acct:[id number] Age/Sex: 61 / F Date of Service: 03/24/22 Loc: ED Accession Number: [id number] ?? Procedure: CT abdomen pelvis w con Ordering Provider: Sancho Weeks P.A-C PROCEDURE:? CT ABDOMEN PELVIS W CON ? INDICATIONS:? R sided abdominal w/ back pain ? TECHNIQUE:? After the administration of intravenous contrast, axial sections acquired from the lung bases to the pubic symphysis.? Coronal and sagittal reformats were performed.? For radiation dose reduction, the following was used:? automated exposure control, adjustment of mA and/or kV according to patient size.? ? COMPARISON:? None. ? FINDINGS: ? Image quality:? Excellent.? ? Lung bases:? Lung bases are clear.? Small hiatal hernia. ? Heart:? Heart size is normal. Coronary atherosclerotic vascular calcifications are noted. ? ? ABDOMEN: Liver:? Unremarkable.? ? Gallbladder:? Unremarkable.? ? Biliary ducts:? Unremarkable.? ? Pancreas:? Unremarkable.? ? Spleen:? Unremarkable.? ? Adrenal Glands:? Unremarkable.? ? Kidneys and Ureters:? Kidneys are symmetric in size and enhancement, and there is no obstructive uropathy.? No perinephric inflammatory changes. Ureters are normal in course and caliber.? Stomach and Bowel:? Stomach, small bowel loops, and colon are unremarkable.? Colonic diverticulosis without acute diverticulitis.? The visualized appendix appears mildly dilated in diameter measuring approximately 11 mm.? Mild wall thickening.? This measures approximately 3 mm in thickness.? No significant periappendiceal stranding.? Hyperdense material may represent small appendicoliths. Peritoneum:? No abnormal intraperitoneal fluid.? No free air.? ? Ventral Wall: ? No hernia.? Abdominal Nodes:? No retroperitoneal or mesenteric adenopathy by size criteria.? Vessels:? Scattered atherosclerotic calcifications of the abdominal aorta and iliac vessels without aneurysmal dilatation.? The inferior vena cava appears patent.? ? PELVIS: Pelvic Organs:? Unremarkable.? ? Bladder:? Unremarkable.? ? Pelvic Nodes: No enlarged lymph nodes.? Miscellaneous: No inguinal hernias are seen. ? ? ? Bones:? No acute vertebral body compression fractures. Multilevel spondylitic changes throughout the imaged spine.? No suspicious osseous lesions.? ? Levoscoliosis. ? IMPRESSION:? Mildly dilated appendix with appendiceal wall thickening.? Minimal periappendiceal stranding.? Findings may represent early developing acute appendicitis.? Otherwise, no acute abnormalities identified in the abdomen or pelvis.? Other chronic findings as above.? ? ? Dictated by: Abel Estevez M.D. on 03/24/2022 at 18:10 ? ? Approved by: Abel Estevez M.D. on 03/24/2022 at 18:17 ? ECG Data Interpretation: EKG is normal sinus rhythm rate 77 and free of any signs of ischemia or ectopy. No ST segmental elevation or depression. No T wave inversions MDM Narrative Medical decision making narrative: MDM * differential diagnosis includes but not limited to appendicitis, cholecystitis abdominal aortic aneurysm, subarachnoid hemorrhage paroxysmal vertigo, TIA, hyperglycemia * Prior records reviewed: Patient was seen here previously for an asthma exacerbation * My lab interpretation: Lab work shows no evidence of leukocytosis. Very mildly hyponatremic. Glucose elevated. L bolus given. * My imgaing interpretation: CT without contrast showed no intracranial abnormality. CT abdomen and pelvis shows possible early developing appendicitis * Independent discussions with: General surgeon and hospitalist as noted above ED Course: This is a 61-year-old female presents to the emergency department due to vertigo which has been affecting her intermittent to the as well as right-sided abdominal with lower back pain. CT head showed no evidence of any kind of acute CVA. Suspect vertigo like symptoms may be due to the patient's hyperglycemia. L bolus given to treat. Patient's abdominal CT showed evidence of possible early appendicitis. Dr. Mojica general surgery was consulted who recommended antibiotics and admission for evaluation for possible surgery tomorrow. Mamie given. Spoke with hospitalist who kindly accepted the patient for admission. Shared Decision Making: Discussed the plan with the patient who is agreeable Of note patient has reported history of hypertension, diabetes, and asthma Social Considerations: None Disposition: Admit to medicine <Jazmyn Cuevas, DO - Last Filed: 03/25/22 08:00> Lab Data Labs: Lab Results 03/24/22 03/24/22 03/24/22 Range/Units 15:50 15:50 15:50 WBC 7.4 (4.5-11.0) X10^3/uL RBC 4.36 (4.0-5.2) X10^6/uL Hgb 12.7 (12.0-16.0) g/dL Hct 37.5 (36-46) % MCV 86.0 (80-100) fL MCH 29.0 (26-34) PG MCHC 33.7 (30-36) % RDW 13.2 (11.6-14.8) % Plt Count 339 (150-400) X10^3/uL Neut % (Auto) 47.0 L (50-75) % Lymph % (Auto) 42.1 H (25-40) % [place] % (Auto) 7.1 (3-14) % Eos % (Auto) 2.5 (2-4) % Baso % (Auto) 1.3 (0-2) % Neut # (Auto) 3500 (9485-8582) /uL Lymph # (Auto) 3100 (1329-4565) /uL [place] # (Auto) 500 (0-900) /uL Eos # (Auto) 200 (0-450) /uL Baso # (Auto) 100 (0-100) /uL PT 11.1 (10.1-12.7) SECONDS INR 1.0 (0.9-1.3) APTT 32 (26-36) SECONDS Sodium 134 L (137-145) mmol/L Potassium 3.9 (3.4-5.1) mmol/L Chloride 96 L (98-107) mmol/L Carbon Dioxide 26 (22-32) mmol/L BUN 16 (7-17) mg/dL Creatinine 0.47 L (0.52-1.04) mg/dL Estimated GFR > 60 (>60) mL/min BUN/Creatinine Ratio 34.0 H (6-22) Glucose 347 H (80-110) mg/dL Hemoglobin A1c (4.0-6.0) % Calcium 9.0 (8.4-10.2) mg/dL Magnesium (1.6-2.3) mg/dL Total Bilirubin 0.3 (0.2-1.3) mg/dL AST 36 (14-36) IU/L ALT 28 (<35) IU/L Alkaline Phosphatase 66 (38-126) U/L Troponin I (0.01-0.034) ng/mL Total Protein 7.8 (6.3-8.2) g/dL Albumin 4.3 (3.5-5.0) g/dL Globulin 3.5 (1.7-4.1) g/dL Albumin/Globulin Ratio 1.2 (1.0-2.8) Lipase (23-300) U/L Ketones (<0.27) mmol/L Blood Type Antibody Screen 03/24/22 03/24/22 03/24/22 Range/Units 15:50 15:50 15:50 WBC (4.5-11.0) X10^3/uL RBC (4.0-5.2) X10^6/uL Hgb (12.0-16.0) g/dL Hct (36-46) % MCV (80-100) fL MCH (26-34) PG MCHC (30-36) % RDW (11.6-14.8) % Plt Count (150-400) X10^3/uL Neut % (Auto) (50-75) % Lymph % (Auto) (25-40) % [place] % (Auto) (3-14) % Eos % (Auto) (2-4) % Baso % (Auto) (0-2) % Neut # (Auto) (7263-2845) /uL Lymph # (Auto) (5010-6507) /uL [place] # (Auto) (0-900) /uL Eos # (Auto) (0-450) /uL Baso # (Auto) (0-100) /uL PT (10.1-12.7) SECONDS INR (0.9-1.3) APTT (26-36) SECONDS Sodium (137-145) mmol/L Potassium (3.4-5.1) mmol/L Chloride (98-107) mmol/L Carbon Dioxide (22-32) mmol/L BUN (7-17) mg/dL Creatinine (0.52-1.04) mg/dL Estimated GFR (>60) mL/min BUN/Creatinine Ratio (6-22) Glucose (80-110) mg/dL Hemoglobin A1c (4.0-6.0) % Calcium (8.4-10.2) mg/dL Magnesium (1.6-2.3) mg/dL Total Bilirubin (0.2-1.3) mg/dL AST (14-36) IU/L ALT (<35) IU/L Alkaline Phosphatase (38-126) U/L Troponin I < 0.012 (0.01-0.034) ng/mL Total Protein (6.3-8.2) g/dL Albumin (3.5-5.0) g/dL Globulin (1.7-4.1) g/dL Albumin/Globulin Ratio (1.0-2.8) Lipase 125 (23-300) U/L Ketones (<0.27) mmol/L Blood Type AB Positive Antibody Screen Negative 03/24/22 03/24/22 03/24/22 Range/Units 15:50 15:50 15:50 WBC (4.5-11.0) X10^3/uL RBC (4.0-5.2) X10^6/uL Hgb (12.0-16.0) g/dL Hct (36-46) % MCV (80-100) fL MCH (26-34) PG MCHC (30-36) % RDW (11.6-14.8) % Plt Count (150-400) X10^3/uL Neut % (Auto) (50-75) % Lymph % (Auto) (25-40) % [place] % (Auto) (3-14) % Eos % (Auto) (2-4) % Baso % (Auto) (0-2) % Neut # (Auto) (7176-7711) /uL Lymph # (Auto) (8414-8477) /uL [place] # (Auto) (0-900) /uL Eos # (Auto) (0-450) /uL Baso # (Auto) (0-100) /uL PT (10.1-12.7) SECONDS INR (0.9-1.3) APTT (26-36) SECONDS Sodium (137-145) mmol/L Potassium (3.4-5.1) mmol/L Chloride (98-107) mmol/L Carbon Dioxide (22-32) mmol/L BUN (7-17) mg/dL Creatinine (0.52-1.04) mg/dL Estimated GFR (>60) mL/min BUN/Creatinine Ratio (6-22) Glucose (80-110) mg/dL Hemoglobin A1c > 14.0 H (4.0-6.0) % Calcium (8.4-10.2) mg/dL Magnesium 1.9 (1.6-2.3) mg/dL Total Bilirubin (0.2-1.3) mg/dL AST (14-36) IU/L ALT (<35) IU/L Alkaline Phosphatase (38-126) U/L Troponin I (0.01-0.034) ng/mL Total Protein (6.3-8.2) g/dL Albumin (3.5-5.0) g/dL Globulin (1.7-4.1) g/dL Albumin/Globulin Ratio (1.0-2.8) Lipase (23-300) U/L Ketones 0.14 (<0.27) mmol/L Blood Type Antibody Screen Point of Care Testing Glucose POC 347 Urine Dip Bedside Urine Glucose 1000 mg/dl Bedside Urine Bilirubin - Negative Bedside Urine Ketone - Negative Urine Specific [place] 1.005 Bedside Urine Occult Blood - Negative Bedside Urine pH 6.0 Bedside Urine Protein - Negative Bedside Urine Urobilinogen - Negative Bedside Urine Nitrite - Negative Bedside Urine Leukocytes +/- 15 Esterase ECG Data Interpretation: EKG is normal sinus rhythm rate 77 and free of any signs of ischemia or ectopy. No ST segmental elevation or depression. No T wave inversions [facility] sinus rhythm rate 77 [place] interval 152 QRS [address] changes no T-wave in version similar to previous EKG 02/07/2022 Discharge Plan Departure Patient Disposition: Admitted As Inpatient Clinical Impression: Acute appendicitis Admit Date/Time: 03/24/22 19:35 Admit Provider: Maulik Oakes <Jazmyn Cuevas, - Last Filed: 03/25/22 08:00> Cosign ED Attending Alexander Attestation: I was immediately available in the department for consultation. Documentation has been reviewed. I agree with assessment and plan.
[2022-03-24 17:27] LABS: Lipase 125 U/L (23-300)
[2022-03-24 17:44] LABS: Troponin I < 0.012 ng/mL (0.01-0.034)
[2022-03-24] MEDS: SODIUM CHLORIDE 0.9% 1,000 ML 1000 ML IV (18:51)
[2022-03-24] MEDS: PIPERACILLIN/TAZO 4.5 GM in SODIUM CHLORIDE 0.9% 100 ML IV (19:14)
[2022-03-24 19:28] LABS: Magnesium 1.9 mg/dL (1.6-2.3)
[2022-03-24 19:31] LABS: Hemoglobin A1C% w Est Avg Glu > 14.0 % (4.0-6.0)
[2022-03-24 20:42] LABS: COVID19 -Nasal RAPID Negative (Negative)
[2022-03-24] MEDS: SODIUM CHLORIDE 0.9% 1,000 ML 100 ML IV (22:09)
[2022-03-24] MEDS: INSULIN LISPRO 100 UNIT/ML 3ML VIAL SUBCUT (22:36)
--- NOTE | 2022-03-24 22:58 | PM.HP.1 ---
History of Present Illness History of Present Illness Date Patient Seen: 03/24/22 Time Patient Seen: 15:44 Chief complaint: VERTIGO ISSUES Narrative: An Cueva ?is a 61-year-old female with a history of insulin-dependent type 2 diabetes, hypertension and asthma presents to the emergency department due to right-sided abdominal pain, back pain, vertigo.? She states that the abdominal pain and back pain have been present for the last week intermittently.? She also states that she has had vertigo in the past but is also complaining of this.? States that she primarily feels lightheaded.? Denies any nausea, vomiting, weakness, slurred speech, diarrhea, constipation, or any other concerning signs or symptoms.? Patient states she is been taking your home blood pressure medications as prescribed. At the time of admit patient complains lower right abdominal slight ache that comes and goes radiate straight through to her back is approximately 3/10, was improved with pain medication in the ED was much more severe at that time, currently denies any nausea, vomiting, diarrhea, fever, body aches, chills, notes she had blood in her urine yesterday, denies any history of GI bleed, denies any blood in her stool, constipation, urinary incontinence does have mild suprapubic tenderness. At the time of admit patient's vitals 96.9, BP 156/67, HR 78, RR 16, O2 saturation 98% on room air. CBC is WNL sodium 134, chloride 96, creatinine 0.47, glucose is 347, patient has no gap, GFR, troponin, lipase, albumin, magnesium, and urinalysis are all WNL, patient's A1c>14%-although she reports she does take 25 units of Lantus at bedtime and no meal insulin. Head CT negative Abdominal CT :Mildly dilated appendix with appendiceal wall thickening.? Minimal periappendiceal stranding.? Findings may represent early developing acute appendicitis.? Patient admitted for acute appendicitis/abdominal pain, hyperglycemia. Dr. Mojica to consult 11:28am 03/24/[address] Hayes:Medical decision making narrative: Lungs are clear, chest x-ray is unremarkable.? Is well-appearing.? He does have a history of asthma.? No indication for antibiotics.? Plan will be is to sent home with a couple days of steroids.? She will continue to take the rest for medications as directed.? She was given return precautions.? She expressed understanding and agreement. Patient History Medical History Asthma Surgical History (Updated 03/25/22 @ 06:27 by EHSAN Petty) History of cataract surgery Family & Social History Family History (Updated 03/25/22 @ 06:28 by EHSAN Petty) Father Diabetes mellitus Mother Diabetes mellitus Social History: household members spouse Prior Living Arrangements House Safety & Behavioral: Feels Safe in Current Yes Environment Been Physically Hurt or No Threatened By a Person Tobacco & Substance use: Smoking Status Never smoker alcohol intake current alcohol intake frequency a few times a month Substance Use Type does not use Meds Home Medications and Allergies Home Medications Medication Instructions Recorded Confirmed Type albuterol sulfate 90 mcg/actuation 1 puff inhalation DAILY 03/24/22 03/24/22 History aerosol inhaler (ProAir HFA) aspirin 81 mg tablet,delayed 81 mg PO DAILY 03/24/22 03/24/22 History release brimonidine 0.1 % eye drops 1 drp EYE-BOTH DAILY 03/24/22 03/24/22 History (Alphagan P) ciclopirox 8 % topical solution 1 applic topical DAILY rash 03/24/22 03/24/22 History insulin glargine 100 unit/mL (3 See Rx Instructions .Route .COMPLEX 03/24/22 03/24/22 History mL) subcutaneous pen (Lantus Solostar U-100 Insulin) lisinopril 40 mg tablet 40 mg PO DAILY 03/24/22 03/24/22 History loratadine 10 mg tablet 10 mg PO DAILY 03/24/22 03/24/22 History ofloxacin 0.3 % eye drops 1 drp EYE-BOTH DAILY 03/24/22 03/24/22 History omeprazole 20 mg capsule,delayed 20 mg PO DAILY 03/24/22 03/24/22 History release Allergies Allergy/AdvReac Type Severity Reaction Status Date / Time erythromycin base Allergy Mild RASH Verified 03/24/22 15:40 [From ERYTHROCIN] repaglinide [From PRANDIN] Allergy Mild UNSURE Verified 03/24/22 15:40 Sulfa (Sulfonamide Allergy Mild HIVES Verified 03/24/22 15:40 Antibiotics) [SULFA (SULFONAMIDE ANTIBIOTICS)] Review of Systems Review of Systems Narrative: All 12 point systems reviewed with the patient and are negative except otherwise documented. Exam Vital Signs (past 8 hours): - 03/24/22 15:40 03/24/22 16:44 03/24/22 16:44 Temperature 97.7 F Pulse Rate 81 83 Respiratory Rate 15 Blood Pressure 199/88 H 162/78 H Pulse Oximetry 100 99 Oxygen Delivery Method Room Air Oxygen Flow Rate 03/24/22 17:00 03/24/22 17:00 03/24/22 17:30 Temperature Pulse Rate 77 87 Respiratory Rate Blood Pressure 140/67 Pulse Oximetry 100 99 Oxygen Delivery Method Oxygen Flow Rate 03/24/22 18:00 03/24/22 18:53 03/24/22 18:54 Temperature Pulse Rate 78 80 Respiratory Rate Blood Pressure 196/85 H Pulse Oximetry 100 100 Oxygen Delivery Method Oxygen Flow Rate 03/24/22 18:54 03/24/22 19:00 03/24/22 19:01 Temperature Pulse Rate 79 77 77 Respiratory Rate 17 Blood Pressure Pulse Oximetry 99 100 100 Oxygen Delivery Method Oxygen Flow Rate 03/24/22 19:01 03/24/22 19:15 03/24/22 19:15 Temperature Pulse Rate 75 Respiratory Rate 15 Blood Pressure 168/74 H 163/79 H Pulse Oximetry 99 Oxygen Delivery Method Oxygen Flow Rate 03/24/22 20:31 03/24/22 22:50 Temperature 96.9 F L Pulse Rate 78 74 Respiratory Rate 16 16 Blood Pressure 186/77 H 151/61 H Pulse Oximetry 98 Oxygen Delivery Method Oxygen Flow Rate 0 Oxygen Delivery Method Room Air Oxygen Flow Rate 0 Narrative Exam Narrative: General: Patient is a well-developed, well-nourished in no distress at this time. HEENT: Normocephalic, atraumatic, extraocular muscles intact, oral pharynx is clear and mucous membranes are moist. Neck is supple and symmetric, trachea is midline, no adenopathy, no thyroid enlargement, nontender, no masses palpated. Negative for JVD Chest: Normal AP diameter and contour without kyphoscoliosis, no nasal flaring, retractions, or tachypneic labored Lungs: Auscultation of all lung [place] are clear without adventitious sounds, wheezes, rhonchi, or rales. Cardio: S1 & S2 with regular rate and rhythm without murmur, rubs, or gallops, no carotid bruit, no cardiac pulsations present. Abdomen: Soft mild tenderness to right quad, no noted organomegaly, or masses. Bowel sounds are present in all 4 quadrants without guarding or rebound, negative psoas, obturator sign, no CVA tenderness. Musculoskeletal: Muscle strength and tone are equal within normal limits, no deformity, crepitus, effusions, cyanosis, clubbing or edema present. Full range of motion intact radial and pedal pulses are normal. Skin: Warm dry and intact without rashes, ulcerations or petechiae. Neuro: Alert and orientated x3, strength is +5/5 in all extremities, sensation to touch intact, no gross deficits noted of cranial nerves. Psych: Patient has a well-kept appearance, appropriate affect, mental status attitude thought context and judgment are appropriate for age. Objective Labs Result Diagrams: 03/24/22 15:50 03/24/22 15:50 Labs: Laboratory Results - last 24 hr 03/24/22 03/24/22 03/24/22 15:50 15:50 15:50 WBC 7.4 RBC 4.36 Hgb 12.7 Hct 37.5 MCV 86.0 MCH 29.0 MCHC 33.7 RDW 13.2 Plt Count 339 Neut % (Auto) 47.0 L Lymph % (Auto) 42.1 H [place] % (Auto) 7.1 Eos % (Auto) 2.5 Baso % (Auto) 1.3 Neut # (Auto) 3500 Lymph # (Auto) 3100 [place] # (Auto) 500 Eos # (Auto) 200 Baso # (Auto) 100 PT 11.1 INR 1.0 APTT 32 Sodium 134 L Potassium 3.9 Chloride 96 L Carbon Dioxide 26 BUN 16 Creatinine 0.47 L Estimated GFR > 60 BUN/Creatinine Ratio 34.0 H Glucose 347 H Hemoglobin A1c Calcium 9.0 Magnesium Total Bilirubin 0.3 AST 36 ALT 28 Alkaline Phosphatase 66 Troponin I Total Protein 7.8 Albumin 4.3 Globulin 3.5 Albumin/Globulin Ratio 1.2 Lipase SARS-CoV-2 (PCR) Blood Type Antibody Screen 03/24/22 03/24/22 03/24/22 15:50 15:50 15:50 WBC RBC Hgb Hct MCV MCH MCHC RDW Plt Count Neut % (Auto) Lymph % (Auto) [place] % (Auto) Eos % (Auto) Baso % (Auto) Neut # (Auto) Lymph # (Auto) [place] # (Auto) Eos # (Auto) Baso # (Auto) PT INR APTT Sodium Potassium Chloride Carbon Dioxide BUN Creatinine Estimated GFR BUN/Creatinine Ratio Glucose Hemoglobin A1c Calcium Magnesium Total Bilirubin AST ALT Alkaline Phosphatase Troponin I < 0.012 Total Protein Albumin Globulin Albumin/Globulin Ratio Lipase 125 SARS-CoV-2 (PCR) Blood Type AB Positive Antibody Screen Negative 03/24/22 03/24/22 03/24/22 15:50 15:50 20:24 WBC RBC Hgb Hct MCV MCH MCHC RDW Plt Count Neut % (Auto) Lymph % (Auto) [place] % (Auto) Eos % (Auto) Baso % (Auto) Neut # (Auto) Lymph # (Auto) [place] # (Auto) Eos # (Auto) Baso # (Auto) PT INR APTT Sodium Potassium Chloride Carbon Dioxide BUN Creatinine Estimated GFR BUN/Creatinine Ratio Glucose Hemoglobin A1c > 14.0 H Calcium Magnesium 1.9 Total Bilirubin AST ALT Alkaline Phosphatase Troponin I Total Protein Albumin Globulin Albumin/Globulin Ratio Lipase SARS-CoV-2 (PCR) Negative Blood Type Antibody Screen Assessment & Plan Assessment & Plan narrative: An Cueva ?is a 61-year-old female with a history of insulin-dependent type 2 diabetes, hypertension and asthma presents to the emergency department due to right-sided abdominal pain, back pain, vertigo.? She states that the abdominal pain and back pain have been present for the last week intermittently.? Patient admitted for acute appendicitis/abdominal pain, hyperglycemia. Dr. Mojica to consult 1. Abdominal pain right upper and lower quadrant, due to, acute appendicitis, acute, present on admission - Dr. Mojica to consult - Abdominal CT :Mildly dilated appendix with appendiceal wall thickening.? Minimal periappendiceal stranding.? Findings may represent early developing acute appendicitis. -NPO -NS at 100 -Zosyn q.8 hours -96.9, BP 156/67, HR 78, RR 16, O2 saturation 98% on room air. -CBC is WNL sodium 134, chloride 96, creatinine 0.47, glucose is 347, patient has no gap, GFR, troponin, lipase, albumin, magnesium, and urinalysis are all WNL, patient's 2. Insulin-dependent type 2 diabetes, with hyperglycemia, uncontrolled, acute on chronic, present on admission - A1c>14%-although she reports she does take 25 units of Lantus at bedtime and no meal insulin. -patient admitted under diabetic protocol, changed last disc dose to 40 units at bedtime-if a.m. blood sugar at 120 or below-continue at this dose -high-dose sliding scale provided -while NPO blood sugar checks q.6 hours D5W as needed -patient education provided regarding risks 2 diabetes uncontrolled -dietary /diabetes education consult placed 3. Hypertension, essential, uncontrolled, acute on chronic, present on admission -continue patient's lisinopril -labetalol as needed IV bridge while NPO 4. Asthma, chronic, present on admission -continue albuterol inhaler as needed 5. Malnutrition, mild, acute on chronic, present on admission BMI 22.5 -patient's malnutrition places them at high risk for medical and surgical complications because of the severe malnutrition in relation to acute illness/chronic illness. This increases the difficulty in complexity of medical management and increases the chances poor outcomes such as mortality and morbidity as well as impaired wound healing, and immune suppression. -dietary consult ordered to evaluate and implement steps to improve caloric intake and nutrition. Code status: Full Surrogate decision maker: Allen spouse COVID PCR: Negative DVT/VTE prophylaxis: SCDs only medication held due to possible pending surgery, Disposition: Patient admitted to acute care, expected length of stay greater than 2 midnights. I have utilized all available immediate resources to obtain, update, or review the patient's current medications. I confirmed that the patient's advanced care plan is present, Code status is documented and/or surrogate decision maker is listed in the patient's medical record. I have personally reviewed patient's chart notes from PCP, specialists, diagnostic imaging, and laboratory, Time Spent With Patient Critical Care time: I spent a total of [] minutes of critical care time on this patient's care today; this time is exclusive of procedural time. Quality VTE Deep Vein Thrombosis/Pulmonary Embolism Present on Admission: No
[2022-03-24] MEDS: lisinopriL 20 MG TABLET 40 MG PO (23:16)
[2022-03-24] MEDS: INSULIN GLARGINE 100 UNIT/ML 3ML PEN 40 UNIT SUBCUT (23:17)
[2022-03-24 23:24] LABS: Ketones (Beta-Hydroxybutyrate) 0.14 mmol/L (<0.27)
--- NOTE | 2022-03-24 23:47 | PC.NURSE ---
Patient admitted into room 212 from ED at 2032. Patient denies any pain or nausea, reports tenderness to RLQ with palpation. Patient c/o dizziness when up. Patient states she has had a few bloody spots she believes is from urinating, a few times over the past several days. Cb Bailon aware of above. Patient verbalizes understanding to call for assist when wants to get up and NPO after midnight.
[2022-03-25] VITALS (16 sets, daily range): BP systolic 118–165; BP diastolic 47–91; PULSE 70–89; RESP 10–19; TEMP 36–36.6; O2SAT 95–99; BMI 23.6
--- NOTE | 2022-03-25 | PATH_ITS ---
[facility] Accession Number: [id number] No. of containers..01 Tissue . 01 Material submitted: . appendix - APPENDIX . 01 Diagnosis: Appendix, Appendectomy: Acute appendicitis. MRV 03/28/2022 1340 Local . 01 Electronically signed: . Lindsey Chang MD, Pathologist NPI- [id number] . 01 Gross description: . The specimen is received in formalin, labeled with the patient's name, , and appendix, and consists of a vermiform appendix measuring 3.3 x 0.8 cm with marcus smooth serosa, a small amount of mesoappendix extending out to 1.0 cm. No perforations are grossly identified. The surgical margin is received closed with rosita, which are removed. The margin is inked blue. Sectioning reveals a lumen that contains a marcus to brown, firm fragment consistent with fecalith measuring 1.3 cm in greatest dimension. The lumen ranges from 0.2 cm to 0.7 cm in diameter with marcus intact gutierrez that average 0.2 cm thick. Production Engineer Track sections to include the surgical margin, one-half of the bisected distal tip, and cross-sections are submitted in cassette A1. No lesions are identified. ([id number]) /FRR 03/26/2022 1700 Local . 01 Pathologist provided ICD-10: K35.80 . 01 CPT . 998143 Specimen Comment: A courtesy copy of this report has been sent to [phone] Performed at: 01 [facility] [address] [place] [address] [address] [facility], [place], [place] [id number] MD Freedom Smallwood MD Phone: [phone]
[2022-03-25] MEDS: PIPERACILLIN/TAZO 3.375 GM in SODIUM CHLORIDE 0.9% 100 ML IV (03:26)
[2022-03-25 06:19] LABS: Alanine Aminotransferase 24 IU/L (<35); Albumin 3.6 g/dL (3.5-5.0); Albumin Globulin Ratio 1.2 (1.0-2.8); Alkaline Phosphatase 54 U/L (38-126); Aspartate Aminotransferase 24 IU/L (14-36); BUN Creatinine Ratio 17.6 (6-22); Bilirubin Total 0.5 mg/dL (0.2-1.3); Blood Urea Nitrogen 9 mg/dL (7-17); Calcium 8.4 mg/dL (8.4-10.2); Carbon Dioxide 27 mmol/L (22-32); Chloride 105 mmol/L (98-107); Estimated Glomerular Filt Rate > 60 mL/min (>60); Globulin 3.1 g/dL (1.7-4.1); Glucose 117 mg/dL (80-110); HEMOLYSIS < 15 (0-50); Magnesium 1.8 mg/dL (1.6-2.3); Potassium 3.7 mmol/L (3.4-5.1); Sodium 139 mmol/L (137-145); Total Protein 6.7 g/dL (6.3-8.2)
[2022-03-25 06:34] LABS: Prothrombin Time 11.8 SECONDS (10.1-12.7)
[2022-03-25 06:38] LABS: Add Manual Diff / Slide Review NO; Basophils Absolute Auto 100 /uL (0-100); Basophils Percent Auto 1.4 % (0-2); Eosinophils Absolute Auto 100 /uL (0-450); Eosinophils Percent Auto 2.6 % (2-4); Hematocrit 33.4 % (36-46); Hemoglobin 11.4 g/dL (12.0-16.0); Lymphocytes Absolute Auto 1900 /uL (1100-4500); Lymphocytes Percent Auto 34.1 % (25-40); Mean Corpuscular HGB Conc 34.1 % (30-36); Mean Corpuscular Hemoglobin 29.3 PG (26-34); Mean Corpuscular Volume 85.9 fL (80-100); Monocytes Absolute Auto 400 /uL (0-900); Neutrophils Absolute Auto 3100 /uL (1500-7000); Neutrophils Percent Auto 54.9 % (50-75); Platelet Count 303 X10^3/uL (150-400); Red Blood Cell Count 3.88 X10^6/uL (4.0-5.2); Red Cell Distribution Width 13.2 % (11.6-14.8); White Blood Cell Count 5.7 X10^3/uL (4.5-11.0)
--- NOTE | 2022-03-25 09:11 | CM.DANOTE ---
DCP: Case received, EMR reviewed and met with patient. Introduced self and role. Was able to obtain information regarding patient's baseline activity level prior to hospitalization. DCP assessment completed with information currently available. Patient is a 61 year old female who admitted yesterday evening to the care of the hospitalist team. PCP: Dr. Chavez[facility], JALEN Marsh Payer: confirmed: Chanda Messer Patient came to the hospital via private vehicle secondary to having right siced abdominal pain, and vertigo. Patient was diagnosed with acute appendicitis. Surgery will consult. Patient has history of insulin-dependent type 2, HTN, and asthma. Met with patient in her room. She was laying in bed, alert and oriented. Confirmed that she resides in [place] with her spouse, Aleksandar. She is independent at her baseline. P: DCP to continue to follow. Patient will have surgery consult for possible surgery. Patient should be able to go home when she is deemed medically stable. Juhi Day RN/System Planning Engineer Discharge Planning/Care Management CM Discharge Assessment Start: 03/25/22 09:07 Freq: Status: Active Protocol: Document 03/25/22 09:07 (Rec: 03/25/22 09:09 [id number]) Discharge Planning Assessment Assigned [employer] Paralegal Juhi Day RN/System Planning Engineer Advance Directives? No History Provided By Patient,Medical Record Prior Living Arrangements House Household Members spouse Type of transporation used prior to Drives own vehicle admit Independent with ADL's Yes Is patient alert and oriented? Yes Caregiver for Another No Barriers to Discharge No Transportation Arrangement Spouse Referrals Initiated None needed Whiteboard Updated in Patient Room with Yes name and ext. # of [employer] Paralegal Review Status In Process Next Review Type Continued Stay Review
--- NOTE | 2022-03-25 09:54 | PC.NURSE ---
Day shift: Pt off unit for procedure at approx 0950. Dr Nova is now aware. SPouse in room and he is aware.
--- NOTE | 2022-03-25 10:16 | PM.CN ---
History of Present Illness Consult details Date Patient Seen: 03/25/22 Time Patient Seen: 10:16 Chief complaint: VERTIGO ISSUES Reason for consult: acute appendicitis Requesting provider: Sancho Weeks Narrative: Patient admitted for abd pain, back pain, and severe vertigo. Found to have hyperglycemia and acute appendicitis. Constipation as well. Abd pain is RLQ, now better after antibiotics. Sharp, worse with movement. Meds Home Medications and Allergies Home Medications Medication Instructions Recorded Confirmed Type albuterol sulfate 90 mcg/actuation 1 puff inhalation DAILY 03/24/22 03/24/22 History aerosol inhaler (ProAir HFA) aspirin 81 mg tablet,delayed 81 mg PO DAILY 03/24/22 03/24/22 History release brimonidine 0.1 % eye drops 1 drp EYE-BOTH DAILY 03/24/22 03/24/22 History (Alphagan P) ciclopirox 8 % topical solution 1 applic topical DAILY rash 03/24/22 03/24/22 History insulin glargine 100 unit/mL (3 See Rx Instructions .Route .COMPLEX 03/24/22 03/24/22 History mL) subcutaneous pen (Lantus Solostar U-100 Insulin) lisinopril 40 mg tablet 40 mg PO DAILY 03/24/22 03/24/22 History loratadine 10 mg tablet 10 mg PO DAILY 03/24/22 03/24/22 History ofloxacin 0.3 % eye drops 1 drp EYE-BOTH DAILY 03/24/22 03/24/22 History omeprazole 20 mg capsule,delayed 20 mg PO DAILY 03/24/22 03/24/22 History release Allergies Allergy/AdvReac Type Severity Reaction Status Date / Time erythromycin base Allergy Mild RASH Verified 03/25/22 10:00 [From ERYTHROCIN] repaglinide [From PRANDIN] Allergy Mild UNSURE Verified 03/25/22 10:00 Sulfa (Sulfonamide Allergy Mild HIVES Verified 03/25/22 10:00 Antibiotics) [SULFA (SULFONAMIDE ANTIBIOTICS)] Review of Systems Review of Systems ROS: Yes All systems reviewed with the patient and are negative except as otherwise documented Exam Vital Signs (past 8 hours): - 03/25/22 06:00 03/25/22 09:00 03/25/22 10:03 Temperature 97.7 F 97.6 F 97.3 F L Pulse Rate 70 86 81 Respiratory Rate 17 17 16 Blood Pressure 137/66 135/59 L 165/91 H Pulse Oximetry 96 96 99 Oxygen Delivery Method Room Air Oxygen Flow Rate 0 0 Oxygen Delivery Method Room Air Oxygen Flow Rate 0 Const General: cooperative and ill appearing Nutritional Appearance: average body habitus [facility] Head: normocephalic and atraumatic Eyes General: appearance normal, both eyes and all related structures Neck Neck: trachea midline Chest Chest: normal inspection of the chest Resp Effort & Inspection: normal respiratory effort and able to speak in complete sentences Cardio Rate: regular rate Rhythm: regular rhythm GI Inspection: normal to inspection Palpation: soft Other: RLQ tenderness to palpation. Skin General: turgor normal Neuro General: patient alert, patient awake and patient oriented x3 Cognition: normal cognition Speech: speech normal Extrem General: full ROM Psych Mental Status: mental status grossly normal Affect: normal affect Judgment: judgment good Objective Labs Result Diagrams: 03/25/22 05:58 03/25/22 05:58 Labs: Laboratory Results - last 24 hr 03/24/22 03/24/22 03/24/22 15:50 15:50 15:50 WBC 7.4 RBC 4.36 Hgb 12.7 Hct 37.5 MCV 86.0 MCH 29.0 MCHC 33.7 RDW 13.2 Plt Count 339 Neut % (Auto) 47.0 L Lymph % (Auto) 42.1 H [place] % (Auto) 7.1 Eos % (Auto) 2.5 Baso % (Auto) 1.3 Neut # (Auto) 3500 Lymph # (Auto) 3100 [place] # (Auto) 500 Eos # (Auto) 200 Baso # (Auto) 100 PT 11.1 INR 1.0 APTT 32 Sodium 134 L Potassium 3.9 Chloride 96 L Carbon Dioxide 26 BUN 16 Creatinine 0.47 L Estimated GFR > 60 BUN/Creatinine Ratio 34.0 H Glucose 347 H Hemoglobin A1c Calcium 9.0 Magnesium Total Bilirubin 0.3 AST 36 ALT 28 Alkaline Phosphatase 66 Troponin I Total Protein 7.8 Albumin 4.3 Globulin 3.5 Albumin/Globulin Ratio 1.2 Lipase Ketones SARS-CoV-2 (PCR) Blood Type Antibody Screen 03/24/22 03/24/22 03/24/22 15:50 15:50 15:50 WBC RBC Hgb Hct MCV MCH MCHC RDW Plt Count Neut % (Auto) Lymph % (Auto) [place] % (Auto) Eos % (Auto) Baso % (Auto) Neut # (Auto) Lymph # (Auto) [place] # (Auto) Eos # (Auto) Baso # (Auto) PT INR APTT Sodium Potassium Chloride Carbon Dioxide BUN Creatinine Estimated GFR BUN/Creatinine Ratio Glucose Hemoglobin A1c Calcium Magnesium Total Bilirubin AST ALT Alkaline Phosphatase Troponin I < 0.012 Total Protein Albumin Globulin Albumin/Globulin Ratio Lipase 125 Ketones SARS-CoV-2 (PCR) Blood Type AB Positive Antibody Screen Negative 03/24/22 03/24/22 03/24/22 15:50 15:50 15:50 WBC RBC Hgb Hct MCV MCH MCHC RDW Plt Count Neut % (Auto) Lymph % (Auto) [place] % (Auto) Eos % (Auto) Baso % (Auto) Neut # (Auto) Lymph # (Auto) [place] # (Auto) Eos # (Auto) Baso # (Auto) PT INR APTT Sodium Potassium Chloride Carbon Dioxide BUN Creatinine Estimated GFR BUN/Creatinine Ratio Glucose Hemoglobin A1c > 14.0 H Calcium Magnesium 1.9 Total Bilirubin AST ALT Alkaline Phosphatase Troponin I Total Protein Albumin Globulin Albumin/Globulin Ratio Lipase Ketones 0.14 SARS-CoV-2 (PCR) Blood Type Antibody Screen 03/24/22 03/25/22 03/25/22 20:24 05:58 05:58 WBC RBC Hgb Hct MCV MCH MCHC RDW Plt Count Neut % (Auto) Lymph % (Auto) [place] % (Auto) Eos % (Auto) Baso % (Auto) Neut # (Auto) Lymph # (Auto) [place] # (Auto) Eos # (Auto) Baso # (Auto) PT 11.8 INR 1.0 APTT Sodium 139 Potassium 3.7 Chloride 105 Carbon Dioxide 27 BUN 9 Creatinine 0.51 L Estimated GFR > 60 BUN/Creatinine Ratio 17.6 Glucose 117 H D Hemoglobin A1c Calcium 8.4 Magnesium 1.8 Total Bilirubin 0.5 AST 24 ALT 24 Alkaline Phosphatase 54 Troponin I Total Protein 6.7 Albumin 3.6 Globulin 3.1 Albumin/Globulin Ratio 1.2 Lipase Ketones SARS-CoV-2 (PCR) Negative Blood Type Antibody Screen 03/25/22 05:58 WBC 5.7 RBC 3.88 L Hgb 11.4 L Hct 33.4 L MCV 85.9 MCH 29.3 MCHC 34.1 RDW 13.2 Plt Count 303 Neut % (Auto) 54.9 Lymph % (Auto) 34.1 [place] % (Auto) 7.0 Eos % (Auto) 2.6 Baso % (Auto) 1.4 Neut # (Auto) 3100 Lymph # (Auto) 1900 [place] # (Auto) 400 Eos # (Auto) 100 Baso # (Auto) 100 PT INR APTT Sodium Potassium Chloride Carbon Dioxide BUN Creatinine Estimated GFR BUN/Creatinine Ratio Glucose Hemoglobin A1c Calcium Magnesium Total Bilirubin AST ALT Alkaline Phosphatase Troponin I Total Protein Albumin Globulin Albumin/Globulin Ratio Lipase Ketones SARS-CoV-2 (PCR) Blood Type Antibody Screen [facility] Medical History Asthma Surgical History History of cataract surgery Family History Father Diabetes mellitus Mother Diabetes mellitus Social History household members: spouse Tobacco & Substance Use Smoking Status: Never smoker alcohol intake: current Assessment & Plan Assessment & Plan narrative: acute appendicitis will undergo Lap Appy. Constipation, vertigo, hyperglycemia all to be addressed by Medical team. COVID-19 COVID-19 status: Negative Time Spent With Patient Time with patient: 30 to 49 minutes with 50% spent counseling/coordinating care Critical Care time: I spent a total of [] minutes of critical care time on this patient's care today; this time is exclusive of procedural time.
[2022-03-25] MEDS: CEFAZOLIN 2 GM/100 ML PREMIX 100 ML IV (11:00)
--- NOTE | 2022-03-25 11:10 | SUR.OPER ---
Supine on padded OR bed, head on pillow, arms padded and tucked at sides, legs uncrossed, safety belt at thigh, tape over blanket over lower legs .
[2022-03-25] MEDS: BUPIVACAINE 0.5% W/ EPI (PF) 30 ML VIAL INJ (11:18)
--- NOTE | 2022-03-25 11:32 | P.OP_ITS ---
Operative Date/Time/Diagnoses Date of procedure: 03/25/22 Time of procedure: 11:32 Pre-op diagnosis: Acute appendicitis Post-op diagnosis: same Procedure & Clinicians Procedure: Preop diagnosis: Acute appendicitis Postop diagnosis: Same Operative procedure: Laparoscopic appendectomy Surgeon: Jessa Mojica MD Anesthetic: General with ET tube intubation along with local Findings: Stage I inflammatory appendicitis Procedure: Patient placed in supine position. Prepped and draped in sterile fashion to expose her abdomen. Infraumbilical port site was placed using open technique and a 12 mm port. Insufflation began all other ports were placed under direct vision including a 5 mm port in the suprapubic area and a 5 mm port in the left lateral lower abdomen. Appendix was lifted cephalad for exposure. Appendiceal mesentery was taken down with electrocautery and excellent hemostasis. It was lying in a retrocecal position Appendix was amputated with a blue load JASON stapling device. The appendix was then placed into an Endo-Catch bag pulled through the infraumbilical port site intact. I surveyed the abdomen for hemostasis, removed all ports, then proceeded with closure. Closure consisted of interrupted 0 Vicryl for fascial closure of the infraumbilical port site. Skin was closed with running 4-0 Vicryl. Steri- Strips and sterile dressings were placed. Patient was awakened, extubated, taken to recovery room in stable condition. Needle, instrument, sponge counts were correct. Specimen: Appendix Blood loss: 5 mL Same procedure as scheduled: Yes Indications: Acute appendicitis Surgeon: Genna Mojica Click Yes if Unassisted: Yes Anesthesia Type: General Operative Notes Findings: Stage I inflammatory appendicitis Estimated Blood Loss (mL): 5 Procedure in detail: As above Complications: none Post-operative Condition: stable Disposition: PACU
[2022-03-25] MEDS: OXYCODONE/ACETAMINOPHEN 5/325 TABLET 1 TAB PO (12:14)
--- NOTE | 2022-03-25 12:16 | SUR.PHASEI ---
to 212. belongings with family in room 212
--- NOTE | 2022-03-25 12:26 | PC.NURSE ---
Day shift: Pt back in room at approx 1225. Spouse in room for support. Post-op vitals per protocol. RA 95%. Call light in reach. Pt requesting ice chips and tolerating them.
[2022-03-25] MEDS: INSULIN LISPRO 100 UNIT/ML 3ML VIAL SUBCUT ×3 (12:53→20:10)
[2022-03-25] MEDS: BRIMONIDINE 0.2% OPHTH 5 ML 1 DROPS EYE-BOTH (12:59)
--- NOTE | 2022-03-25 14:26 | PM.PN.1 ---
Subjective Subjective Date Patient Seen: 03/25/22 Interval history: Patient just recently arrived back from OR after laparoscopic appendectomy. Patient complains of abdominal pain, dizziness has improved, feels a bit weak. Denies chest pain, shortness of breath, nausea, or vomiting at this time. Exam Vital Signs (past 8 hours): - 03/25/22 09:00 03/25/22 10:03 03/25/22 11:39 Temperature 97.6 F 97.3 F L 97.1 F L Pulse Rate 86 81 89 Respiratory Rate 17 16 16 Blood Pressure 135/59 L 165/91 H 148/73 H Pulse Oximetry 96 99 98 Oxygen Delivery Method Room Air Room Air Oxygen Flow Rate 0 03/25/22 11:45 03/25/22 11:49 03/25/22 11:54 Temperature 97.9 F Pulse Rate 87 82 84 Respiratory Rate 16 13 10 L Blood Pressure 144/73 H 136/84 143/68 H Pulse Oximetry 98 97 97 Oxygen Delivery Method Room Air Room Air Room Air Oxygen Flow Rate 03/25/22 12:07 03/25/22 12:15 Temperature 97.2 F L Pulse Rate 80 81 Respiratory Rate 10 L 19 Blood Pressure 141/68 H 135/67 Pulse Oximetry 98 99 Oxygen Delivery Method Oxygen Flow Rate Oxygen Delivery Method Room Air Oxygen Flow Rate 0 Narrative Exam Narrative: General:? Patient is well developed and well nourished, in no distress at this time. HEENT:? Normocephalic, atraumatic, extraocular muscles intact, oral pharynx is clear and mucous membranes are moist. Neck: supple and symmetric, trachea is midline, no cervical adenopathy. Negative for JVD Chest:? Normal AP diameter and contour without kyphoscoliosis, no tachypnea, equal chest rise bilaterally. Lungs:? CTA b/l no wheezing rhonchi or rales. Cardio:?RRR no m/r/g. Abdomen: soft, appropriately tender around incisions, dressings c/d/i. no distension. Musculoskeletal:? Muscle strength and tone are equal within normal limits, no deformity. Extremities: No edema or joint effusions. No cyanosis or clubbing. Skin:? Pale,? Warm to touch,dry and intact without rashes, ulcerations or petechiae.? Neuro:? Alert and orientated x3,? sensation to touch intact in all extremities, no gross deficits noted of cranial nerves. Psych:? Patient has a well-kept appearance, appropriate affect, mental status attitude thought context and judgment are appropriate for age. Objective Labs Result Diagrams: 03/25/22 05:58 03/25/22 05:58 Labs: Laboratory Results - last 24 hr 03/24/22 03/24/22 03/24/22 15:50 15:50 15:50 WBC 7.4 RBC 4.36 Hgb 12.7 Hct 37.5 MCV 86.0 MCH 29.0 MCHC 33.7 RDW 13.2 Plt Count 339 Neut % (Auto) 47.0 L Lymph % (Auto) 42.1 H [place] % (Auto) 7.1 Eos % (Auto) 2.5 Baso % (Auto) 1.3 Neut # (Auto) 3500 Lymph # (Auto) 3100 [place] # (Auto) 500 Eos # (Auto) 200 Baso # (Auto) 100 PT 11.1 INR 1.0 APTT 32 Sodium 134 L Potassium 3.9 Chloride 96 L Carbon Dioxide 26 BUN 16 Creatinine 0.47 L Estimated GFR > 60 BUN/Creatinine Ratio 34.0 H Glucose 347 H Hemoglobin A1c Calcium 9.0 Magnesium Total Bilirubin 0.3 AST 36 ALT 28 Alkaline Phosphatase 66 Troponin I Total Protein 7.8 Albumin 4.3 Globulin 3.5 Albumin/Globulin Ratio 1.2 Lipase Ketones SARS-CoV-2 (PCR) Blood Type Antibody Screen 03/24/22 03/24/22 03/24/22 15:50 15:50 15:50 WBC RBC Hgb Hct MCV MCH MCHC RDW Plt Count Neut % (Auto) Lymph % (Auto) [place] % (Auto) Eos % (Auto) Baso % (Auto) Neut # (Auto) Lymph # (Auto) [place] # (Auto) Eos # (Auto) Baso # (Auto) PT INR APTT Sodium Potassium Chloride Carbon Dioxide BUN Creatinine Estimated GFR BUN/Creatinine Ratio Glucose Hemoglobin A1c Calcium Magnesium Total Bilirubin AST ALT Alkaline Phosphatase Troponin I < 0.012 Total Protein Albumin Globulin Albumin/Globulin Ratio Lipase 125 Ketones SARS-CoV-2 (PCR) Blood Type AB Positive Antibody Screen Negative 03/24/22 03/24/22 03/24/22 15:50 15:50 15:50 WBC RBC Hgb Hct MCV MCH MCHC RDW Plt Count Neut % (Auto) Lymph % (Auto) [place] % (Auto) Eos % (Auto) Baso % (Auto) Neut # (Auto) Lymph # (Auto) [place] # (Auto) Eos # (Auto) Baso # (Auto) PT INR APTT Sodium Potassium Chloride Carbon Dioxide BUN Creatinine Estimated GFR BUN/Creatinine Ratio Glucose Hemoglobin A1c > 14.0 H Calcium Magnesium 1.9 Total Bilirubin AST ALT Alkaline Phosphatase Troponin I Total Protein Albumin Globulin Albumin/Globulin Ratio Lipase Ketones 0.14 SARS-CoV-2 (PCR) Blood Type Antibody Screen 03/24/22 03/25/22 03/25/22 20:24 05:58 05:58 WBC RBC Hgb Hct MCV MCH MCHC RDW Plt Count Neut % (Auto) Lymph % (Auto) [place] % (Auto) Eos % (Auto) Baso % (Auto) Neut # (Auto) Lymph # (Auto) [place] # (Auto) Eos # (Auto) Baso # (Auto) PT 11.8 INR 1.0 APTT Sodium 139 Potassium 3.7 Chloride 105 Carbon Dioxide 27 BUN 9 Creatinine 0.51 L Estimated GFR > 60 BUN/Creatinine Ratio 17.6 Glucose 117 H D Hemoglobin A1c Calcium 8.4 Magnesium 1.8 Total Bilirubin 0.5 AST 24 ALT 24 Alkaline Phosphatase 54 Troponin I Total Protein 6.7 Albumin 3.6 Globulin 3.1 Albumin/Globulin Ratio 1.2 Lipase Ketones SARS-CoV-2 (PCR) Negative Blood Type Antibody Screen 03/25/22 05:58 WBC 5.7 RBC 3.88 L Hgb 11.4 L Hct 33.4 L MCV 85.9 MCH 29.3 MCHC 34.1 RDW 13.2 Plt Count 303 Neut % (Auto) 54.9 Lymph % (Auto) 34.1 [place] % (Auto) 7.0 Eos % (Auto) 2.6 Baso % (Auto) 1.4 Neut # (Auto) 3100 Lymph # (Auto) 1900 [place] # (Auto) 400 Eos # (Auto) 100 Baso # (Auto) 100 PT INR APTT Sodium Potassium Chloride Carbon Dioxide BUN Creatinine Estimated GFR BUN/Creatinine Ratio Glucose Hemoglobin A1c Calcium Magnesium Total Bilirubin AST ALT Alkaline Phosphatase Troponin I Total Protein Albumin Globulin Albumin/Globulin Ratio Lipase Ketones SARS-CoV-2 (PCR) Blood Type Antibody Screen [facility] Medical History Asthma Surgical History History of cataract surgery Family History Father Diabetes mellitus Mother Diabetes mellitus Social History household members: spouse Smoking Status: Never smoker alcohol intake: current Assessment & Plan Assessment & Plan narrative: An Tayloris a 61-year-old female with a history of insulin-dependent type 2 diabetes, hypertension and asthma presents to the emergency department due to right-sided abdominal pain, back pain, vertigo.?She was admitted with acute appendicitis, now s/p lap appendectomy today with surgery. 1. acute appendicitis, present on admission -Now s/p lap appy on 03/25/22, appreciate Dr. Mojica's management. -can stop antibiotics, initially started on zosyn prior to surgery -continue pain control with as needed oxycodone for severe pain, tylenol for mild pain. 2. Insulin-dependent type 2 diabetes, with hyperglycemia, uncontrolled, acute on chronic, present on admission - A1c>14%-although she reports she does take 25 units of Lantus at bedtime and no meal insulin. -patient admitted under diabetic protocol, increased home lantus to 40 U with AM glucose of 117. Will need continued adjustment of glucose prior to discharge. -patient education provided regarding risks 2 diabetes uncontrolled -dietary /diabetes education consult placed -continue home asa for primary prevention. -patient's admitting dizziness may be related to acute appendicitis or hyperglycemia or both could be contributory. 3. Hypertension, essential, uncontrolled, acute on chronic, present on admission -continue patient's lisinopril -labetalol as needed IV bridge while NPO 4. Asthma, chronic, present on admission -continue albuterol inhaler as needed Code status: Full Surrogate decision maker: Allen spouse COVID PCR: Negative DVT/VTE prophylaxis: Lovenox daily starting tomorrow. Disposition: Observation, likely discharge home tomorrow if dizziness remains improved, along with ability to tolerate oral intake after apendectomy, Time Spent With Patient Critical Care time: I spent a total of [] minutes of critical care time on this patient's care today; this time is exclusive of procedural time. Quality VTE Deep Vein Thrombosis/Pulmonary Embolism Present on Admission: No
--- NOTE | 2022-03-25 17:25 | DIET.CONS ---
Dietary Consultation Note Admission Date: 03/24/2022 19:35 Assessment: 61 y/o F admitted for acute appendicitis s/p appendectomy. RD consulted for A1c >14 and BMI 22.5. An reports h/o Dm education on [facility] where her PCP and dietitian are. At home she is takes 25u Lantus. Since admission she has been on 40u with minimal need for SSI. Blood glucose: today (time: mg/dL) 630: 115 10: 131 1243: 168 1658: 168 Good BG management currently with 40u Lantus. An has questions about diabetes progression and insulin resistance. Diet recall: 7a: oatmeal (unsure of portion) or cottage cheese and fruit or belarusian yogurt with berries 7-8p: salad and vegetables with chicken, sometimes rice (probably too much) snack: chips or an apple Beverages: water 4-6 x 16.9oz, zero kcal sports drink, coffee, tea Denies any recent weight loss, though states she does feel as though her legs feel smaller. BMI >18.5 appropriate for age Bony acromion process, otherwise no signs of muscle/fat wasting per physical exam. Ht: 154.94 cm Wt: 56.699 kg BMI: 22.4 UBW: 54.5-56.8kg Last BM: 03/24/22 (03/25/22 10:03) MNA: 12 Micha Score: 20 Diet: 03/25/22 Dinner Carbohydrate Consistent Diet Diet Modifications: Carbohydrate level: Large (4 CHO) Labs: RBC 3.88 X10^6/uL (4.0-5.2) L 03/25/22 05:58 Hgb 11.4 g/dL (12.0-16.0) L 03/25/22 05:58 Hct 33.4 % (36-46) L 03/25/22 05:58 Creatinine 0.51 mg/dL (0.52-1.04) L 03/25/22 05:58 Hemoglobin A1c > 14.0 % (4.0-6.0) H 03/24/22 15:50 Nutrition Diagnosis: Altered nutrition related lab value r/t likely progression of DM and increased insulin needs aeb hgA1c >14% and improved BG with higher Lantus dose. Interventions: 1. Encouraged [place] or [facility] (provided contact info prn) 2. Encouraged more consistent energy intake (q 3-5 hours) and consistent pro intake 3. Discussed portions for CHO snacks and pairing with Pro 4. Reviewed likelihood of increased insulin needs, insulin resistance, and diabetes progression over time. EER: CCD 45g per meal Monitoring/Evaluations: rec diabetes education op; consult prn Electronically Signed by: Margarita Canada 03/25/22 17:25 Clinical Dietitian [address] [address]
[2022-03-25] MEDS: OXYCODONE IR 5 MG TABLET PO (20:06)
[2022-03-25] MEDS: INSULIN GLARGINE 100 UNIT/ML 3ML PEN 40 UNIT SUBCUT (20:10)
[2022-03-25] MEDS: SODIUM CHLORIDE 0.9% FLUSH 10 ML IV (20:14)
[2022-03-26] MEDS: OXYCODONE IR 5 MG TABLET PO (01:06)
--- NOTE | 2022-03-26 04:06 | PC.NURSE ---
Pt is AxOx4, needs STA and cooperative. VSS, pt c/o pain on abd and recieved PRN Oxy 5mg x2 with good effect. Pt has 3 lap sites and it is C/D/I. No other changes. Continue monitor.
[2022-03-26 05:13] LABS: Add Manual Diff / Slide Review NO; Basophils Absolute Auto 0 /uL (0-100); Basophils Percent Auto 0.4 % (0-2); Eosinophils Absolute Auto 0 /uL (0-450); Eosinophils Percent Auto 0.4 % (2-4); Hematocrit 31.3 % (36-46); Hemoglobin 10.7 g/dL (12.0-16.0); Lymphocytes Absolute Auto 3300 /uL (1100-4500); Mean Corpuscular HGB Conc 34.1 % (30-36); Monocytes Absolute Auto 700 /uL (0-900); Monocytes Percent Auto 5.6 % (3-14); Neutrophils Absolute Auto 8300 /uL (1500-7000); Neutrophils Percent Auto 66.6 % (50-75); Platelet Count 288 X10^3/uL (150-400); Red Blood Cell Count 3.68 X10^6/uL (4.0-5.2); Red Cell Distribution Width 13.2 % (11.6-14.8); White Blood Cell Count 12.4 X10^3/uL (4.5-11.0)
[2022-03-26 05:16] LABS: Alanine Aminotransferase 22 IU/L (<35); Alkaline Phosphatase 49 U/L (38-126); Aspartate Aminotransferase 26 IU/L (14-36); BUN Creatinine Ratio 28.6 (6-22); Bilirubin Total 0.2 mg/dL (0.2-1.3); Blood Urea Nitrogen 14 mg/dL (7-17); Calcium 8.4 mg/dL (8.4-10.2); Carbon Dioxide 27 mmol/L (22-32); Chloride 102 mmol/L (98-107); Estimated Glomerular Filt Rate > 60 mL/min (>60); Glucose 193 mg/dL (80-110); HEMOLYSIS < 15 (0-50); Potassium 3.8 mmol/L (3.4-5.1); Sodium 137 mmol/L (137-145); Total Protein 6.3 g/dL (6.3-8.2)
[2022-03-26 06:13] VITALS: BP 121/60; PULSE 85; RESP 16; TEMP 36.7; O2SAT 98
[2022-03-26 09:00] VITALS: BP 130/64; PULSE 75; RESP 17; TEMP 36.3; O2SAT 98
--- NOTE | 2022-03-26 09:19 | P.DS_ITS ---
History of Present Illness History of Present Illness Date Patient Seen: 03/26/22 Chief complaint: VERTIGO ISSUES Narrative: Per admitting provider, An Hammad ?is a 61-year-old female with a history of insulin-dependent type 2 diabetes, hypertension and asthma presents to the emergency department due to right-sided abdominal pain, back pain, vertigo.? She states that the abdominal pain and back pain have been present for the last week intermittently.? She also states that she has had vertigo in the past but is also complaining of this.? States that she primarily feels lightheaded.? Denies any nausea, vomiting, weakness, slurred speech, diarrhea, constipation, or any other concerning signs or symptoms.? Patient states she is been taking your home blood pressure medications as prescribed. At the time of admit patient complains lower right abdominal slight ache that comes and goes radiate straight through to her back is approximately 3/10, was improved with pain medication in the ED was much more severe at that time, currently denies any nausea, vomiting, diarrhea, fever, body aches, chills, notes she had blood in her urine yesterday, denies any history of GI bleed, denies any blood in her stool, constipation, urinary incontinence does have mild suprapubic tenderness. At the time of admit patient's vitals 96.9, BP 156/67, HR 78, RR 16, O2 saturation 98% on room air. CBC is WNL sodium 134, chloride 96, creatinine 0.47, glucose is 347, patient has no gap, GFR, troponin, lipase, albumin, magnesium, and urinalysis are all WNL, patient's A1c>14%-although she reports she does take 25 units of Lantus at bedtime and no meal insulin. Head CT negative Abdominal CT :Mildly dilated appendix with appendiceal wall thickening.? Minimal periappendiceal stranding.? Findings may represent early developing acute appendicitis.? Patient admitted for acute appendicitis/abdominal pain, hyperglycemia. Dr. Mojica to consult 11:28am 03/24/[address] Hayes:Medical decision making narrative: Lungs are clear, chest x-ray is unremarkable.? Is well-appearing.? He does have a history of asthma.? No indication for antibiotics.? Plan will be is to sent home with a couple days of steroids.? She will continue to take the rest for medications as directed.? She was given return precautions.? She expressed understanding and agreement. Discharge Providers Provider Date of admission: 03/24/22 19:35 Discharge Date: 03/26/22 Primary care physician: Maximo RAO Provider Consults: 03/24/22 18:36 Consult to General Surgery Stat Comment: Consulting Provider: Genna Mojica Reason for consultation: Possible appendicitis Has provider been notified: Yes 03/24/22 22:41 Consult to Dietitian, Adult Urgent Comment: Reason For Exam: A!C>14, BMI22.5 Discharge provider: Haider Nova DO Summary Hospital Course Discharge Diagnosis: 1. acute appendicitis, present on admission 2. Insulin-dependent type 2 diabetes, with hyperglycemia, uncontrolled, acute on chronic, present on admission 3. Hypertension, essential, uncontrolled, acute on chronic, present on admission 4. Asthma, chronic, present on admission Hospital Course: This is a 61 year old female admitted with acute appendicitis and uncontrolled diabetes. She was initially started on antibiotics for her acute appendicitis and her home insulin was increased. She underwent laparoscopic appendectomy with General surgery with an uncomplicated postoperative course. Her pain was controlled and she was tolerating a diet, and her presenting symptoms had largely resolved. Her morning glucose appeared to be controlled with an increase to 40 units of Lantus and dietary restrictions. After appendectomy, the patient was not discharged on antibiotics as infectious source had been removed. Her A1c was greater than 14%, though her morning sugars appear controlled as noted above with an increase in her Lantus. She should follow-up with her primary care provider for further diabetes management after discharge. There were no other changes made to her chronic home medications, and the patient was sent home with oral pain control after surgery. Time Spent with Patient Time spent: Greater than 30 minutes Exam Vital Signs (past 8 hours): - 03/26/22 06:13 03/26/22 09:00 Temperature 98.1 F 97.4 F L Pulse Rate 85 75 Respiratory Rate 16 17 Blood Pressure 121/60 130/64 Pulse Oximetry 98 98 Oxygen Flow Rate 0 Oxygen Delivery Method Room Air Oxygen Flow Rate 0 Narrative Exam Narrative: General:? Patient is well developed and well nourished, in no distress at this time. HEENT:? Normocephalic, atraumatic, extraocular muscles intact, oral pharynx is clear and mucous membranes are moist. Neck: supple and symmetric, trachea is midline Chest:? Normal AP diameter and contour without kyphoscoliosis, no tachypnea, equal chest rise bilaterally. Lungs:? CTA b/l no wheezing rhonchi or rales. Cardio:?RRR no m/r/g. Abdomen: soft, appropriately tender around incisions, dressings with mild serosanguinous fluid. no distension. Musculoskeletal:? Muscle strength and tone are equal within normal limits, no deformity. Extremities: No edema or joint effusions. No cyanosis or clubbing. Skin:? Pale,? Warm to touch,dry and intact without rashes, ulcerations or petechiae.? Neuro:? Alert and orientated x3,? sensation to touch intact in all extremities, no gross deficits noted of cranial nerves. Psych:? Patient has a well-kept appearance, appropriate affect, mental status attitude thought context and judgment are appropriate for age. Objective Labs Result Diagrams: 03/26/22 04:53 03/26/22 04:53 Labs: Laboratory Results - last 24 hr 03/26/22 03/26/22 04:53 04:53 WBC 12.4 H D RBC 3.68 L Hgb 10.7 L Hct 31.3 L MCV 85.0 MCH 29.0 MCHC 34.1 RDW 13.2 Plt Count 288 Neut % (Auto) 66.6 Lymph % (Auto) 27.0 [place] % (Auto) 5.6 Eos % (Auto) 0.4 L Baso % (Auto) 0.4 Neut # (Auto) 8300 H Lymph # (Auto) 3300 [place] # (Auto) 700 Eos # (Auto) 0 Baso # (Auto) 0 Sodium 137 Potassium 3.8 Chloride 102 Carbon Dioxide 27 BUN 14 Creatinine 0.49 L Estimated GFR > 60 BUN/Creatinine Ratio 28.6 H Glucose 193 H Calcium 8.4 Total Bilirubin 0.2 AST 26 ALT 22 Alkaline Phosphatase 49 Total Protein 6.3 PFSH Medical History Asthma Surgical History History of cataract surgery Family History Father Diabetes mellitus Mother Diabetes mellitus Social History household members: spouse Smoking Status: Never smoker alcohol intake: current Discharge Plan Discharge Plan Patient Disposition: Home Provider Discharge Comment: You were admitted to the hospital with appendicitis. Your appendix was removed. No antitbiotics are needed at discharge. Please increase your lantus to 40 units at bedtime and follow up with your PCP as soon as possible for help managing your diabetes at home. Discharge orders & Medications Prescriptions: New acetaminophen 325 mg Tablet 650 mg PO Q6H PRN (Reason: Fever/Mild Pain (1-3)) 30 Days Qty: 30 0RF oxycodone 5 mg Tablet 5 mg PO Q4HR PRN (Reason: Pain, Moderate (4-6)) 7 Days Qty: 20 0RF sennosides [senna] 8.6 mg Tablet 8.6 mg PO BID PRN (Reason: Constipation) 7 Days Qty: 14 0RF (DME) pen needle, diabetic 31 gauge x 3/16 needle See Rx Instructions .Route Qty: 100 0RF Rx Instructions: For use with insulin pen, use one nightly Continued ciclopirox 8 % solution 1 applic TOPICAL DAILY Label Comments: apply topically to affected area OF RASH daily omeprazole 20 mg capsule,delayed release(DR/EC) 20 mg PO DAILY albuterol sulfate [ProAir HFA] 90 mcg/actuation HFA aerosol inhaler 1 puff INHALATION DAILY Alphagan P 0.1 % drops 1 drp EYE-BOTH DAILY aspirin 81 mg tablet,delayed release (DR/EC) 81 mg PO DAILY lisinopril 40 mg tablet 40 mg PO DAILY loratadine 10 mg tablet 10 mg PO DAILY ofloxacin 0.3 % drops 1 drp EYE-BOTH DAILY Changed insulin glargine [Lantus Solostar U-100 Insulin] 100 unit/mL (3 mL) insulin pen 40 unit SUBCUT BEDTIME 90 Days Qty: 36 0RF Label Comments: 25 units every bedtime Follow up/Referrals: ProviderMaximo [Primary Care Provider] - Diet/Activity/Treatments Diet: Diet as Tolerated and Carb-consistent/Diabetic Activity: As tolerated Visit Report/Discharge Packet Instructions: DI for an Appendectomy, DI for Laparoscopy, DI for Prescription Opioid Use, [facility]: Wound Care Stand Alone Forms: Congestive Heart Failure, Patient Portal/API, Stroke Signs & Symptoms, Surgery Discharge Discharge Data Primary Care Provider: Maximo Cabral Attending Provider: Maulik Oakes VTE Deep Vein Thrombosis/Pulmonary Embolism Present on Admission: No
[2022-03-26] MEDS: ENOXAPARIN 40 MG/0.4 ML SYRINGE SUBCUT (09:26)
[2022-03-26] MEDS: BRIMONIDINE 0.2% OPHTH 5 ML 1 DROPS EYE-BOTH (09:27)
[2022-03-26] MEDS: SODIUM CHLORIDE 0.9% FLUSH 10 ML IV (09:27)
[2022-03-26] MEDS: INSULIN LISPRO 100 UNIT/ML 3ML VIAL SUBCUT (09:29)
[2022-03-26 09:37] VITALS: BP 130/64; PULSE 75
[2022-03-26] MEDS: lisinopriL 20 MG TABLET 40 MG PO (09:37)
--- NOTE | 2022-03-26 11:12 | PC.NURSE ---
Addendum entered by Sen Conrad R.N. 03/26/22 16:44: D/C instructions given to Pt and . Pt dressed and readied for D/c. Escorted via w/c to car and care of her . Original Note: Pt alert and oriented. follows commands offers not overt c/o. Expects to go home this afternoon. Surgical site CDI. Passing gas. BT's hypo to active.
[2022-03-26 12:00] VITALS: BP 103/62; PULSE 72; RESP 17; TEMP 36.5; O2SAT 100
[2022-04-01 15:18] LABS: Albumin 3.2 g/dL (3.5-5.0); Globulin 3.1 g/dL (1.7-4.1)
== END 2022-03-26 16:30 | disposition home or self-care (01) ==
LOC: ED 19:07 → AC 19:38
PROVIDERS: Emergency Medicine; Nurse Practitioner Family; Surgery; Admitting Provider Student in an Organized Health Care Education/Training Program; Emergency Provider Physician Assistant Medical; Family Provider Internal Medicine; Referring Provider Physician Assistant Medical; Visit Provider Student in an Organized Health Care Education/Training Program
PROC: 0DTJ4ZZ Resection of Appendix, Percutaneous Endoscopic Approach (ICD-10-PCS; CPT 44970; principal; 2022-03-25 15:30)
DX: K35.80 Unspecified acute appendicitis (principal); R42 Dizziness and giddiness; I10 Essential (primary) hypertension; J45.909 Unspecified asthma, uncomplicated; Z20.822 Contact with and (suspected) exposure to COVID-19
CPT/HCPCS: 44970; 36415; 70450; 74177; 80053; 81003; 82009; 82962; 83036; 83690; 83735; 84484; 85025; 85610; 85730; 86850; 86900; 86901; 87086; 87635; 93005; 93010; 96365; 96372; 96375; 99221; 99284; C9803; G0378; A9270; C9113; J0330; J0690; J1100; J1650; J1815; J2405; J2543; J2704; J3010; Q9967

== ENCOUNTER 2022-07-11 14:44 | Emergency (ER) | payer OTHER, SELFPAY ==
[2022-03-24 20:18] VITALS: BMI 22.4
[2022-07-11 15:10] VITALS: BP 184/100
[2022-07-11 15:11] VITALS: PULSE 91; O2SAT 100
[2022-07-11 15:13] VITALS: BP 178/80; PULSE 86; RESP 16; TEMP 36.8; O2SAT 97; BMI 22.6
[2022-07-11 15:16] VITALS: BP 168/80; PULSE 77; O2SAT 100
--- NOTE | 2022-07-11 15:21 | ED_ITS ---
HPI - General Adult General Chief complaint: Abdominal Pain Stated complaint: Right side abd pain, hx abd surgery? Time Seen by Provider: 07/11/22 15:03 Source: patient Mode of arrival: Ambulatory Limitations: no limitations History of Present Illness HPI narrative: Patient is a 61-year-old female. She is here for evaluation of bilateral with right being greater than left lower abdominal discomfort. It started hurts several days ago. No nausea vomiting. States she is constipated. She did take some senna. She had a hard bowel movement this morning and did not change any of the pain. She is not having any urinary symptoms. Urinating does not change the pain. She did have a hysteroscopy at the beginning of June and had a biopsy. She is not having any vaginal bleeding. She has had her appendix rem mikaela. Still has her ovaries. No fevers. Has not tried anything for symptoms prior to arrival. Related Data Home Medications Medication Instructions Recorded Confirmed albuterol sulfate 90 mcg/actuation 1 puff inhalation DAILY 03/24/22 04/21/22 aerosol inhaler (ProAir HFA) aspirin 81 mg tablet,delayed 81 mg PO DAILY 03/24/22 04/21/22 release brimonidine 0.1 % eye drops 1 drp EYE-BOTH DAILY 03/24/22 04/21/22 (Alphagan P) ciclopirox 8 % topical solution 1 applic topical DAILY rash 03/24/22 04/21/22 lisinopril 40 mg tablet 40 mg PO DAILY 03/24/22 04/21/22 loratadine 10 mg tablet 10 mg PO DAILY 03/24/22 04/21/22 ofloxacin 0.3 % eye drops 1 drp EYE-BOTH DAILY 03/24/22 04/21/22 omeprazole 20 mg capsule,delayed 20 mg PO DAILY 03/24/22 04/21/22 release Previous Rx's Medication Instructions Recorded insulin glargine 100 unit/mL (3 40 unit (0.4 mL) SUBCUT BEDTIME 90 03/26/22 mL) subcutaneous pen (Lantus days #36 mL Solostar U-100 Insulin) pen needle, diabetic 31 gauge x #100 ea 03/26/22 3/16 Allergies Allergy/AdvReac Type Severity Reaction Status Date / Time erythromycin base Allergy Mild RASH Verified 04/21/22 11:13 [From ERYTHROCIN] repaglinide [From PRANDIN] Allergy Mild UNSURE Verified 04/21/22 11:13 Sulfa (Sulfonamide Allergy Mild HIVES Verified 04/21/22 11:13 Antibiotics) [SULFA (SULFONAMIDE ANTIBIOTICS)] Review of Systems Constitutional Constitutional: Reports system reviewed and no additional complaints, except as documented Cardiovascular Cardiovascular: Reports system reviewed and no additional complaints, except as documented Respiratory Respiratory: Reports system reviewed and no additional complaints, except as documented Gastrointestinal Gastrointestinal: Reports system reviewed and no additional complaints, except as documented Genitourinary Genitourinary: Reports system reviewed and no additional complaints, except as documented Integumentary/Breasts Skin/Breast: Reports system reviewed and no additional complaints, except as documented Neurologic Neurologic: Reports system reviewed and no additional complaints, except as documented Hematologic/Lymphatic On Anticoagulants: No Patient History Medical History Asthma Surgical History History of cataract surgery Hx of appendectomy Family History Father Diabetes mellitus Mother Diabetes mellitus Social History household members: spouse Smoking Status: Never smoker alcohol intake: current Smoking Status: Never smoker alcohol intake frequency: a few times a month Substance Use Type: does not use Exam Initial Vital Signs Initial Vital Signs: Vital Signs Temperature 98.2 F 07/11/22 15:13 Pulse Rate 86 07/11/22 15:13 Respiratory Rate 16 07/11/22 15:13 Blood Pressure 178/80 H 07/11/22 15:13 Pulse Oximetry 97 07/11/22 15:13 Oxygen Delivery Method Room Air 07/11/22 15:13 Const General: cooperative and comfortable HENMT Head: normal to inspection and normocephalic Resp Effort & Inspection: normal respiratory effort Auscultation: clear to auscultation bilaterally Cardio Rate: regular rate Rhythm: regular rhythm GI Inspection: normal to inspection and non-distended Palpation: soft, No firm, No guarding and tender (Suprapubic and right lower quadrant) Back/Spine/Pelvis Back: No CVA tenderness Neuro General: patient alert, patient awake and moves all extremities Extrem General: capillary refill normal Course Orders Ordered: ED Orders 07/11/22 15:15 Complete Blood Count AUTO DIFF Stat Comprehensive Metabolic Panel Stat Lipase Stat 07/11/22 15:24 CT abdomen pelvis w con Stat Ondansetron HCl (Ondansetron 4 Mg Odt) 4 mg PO NOW PRN PRN Reason: Nausea And Vomiting Ondansetron HCl (Ondansetron 4 Mg/2 Ml Inj) 4 mg IV NOW PRN PRN Reason: Nausea And Vomiting Vital Signs Vital signs: Vital Signs - 8 hr 07/11/22 15:13 Temperature 98.2 F Pulse Rate 86 Respiratory Rate 16 Blood Pressure 178/80 H Pulse Oximetry 97 Oxygen Delivery Method Room Air Medical Decision Making Lab Data Lab results reviewed: Yes I reviewed the patient's lab results. 07/11/22 15:15 07/11/22 15:15 Labs: Lab Results 07/11/22 07/11/22 Range/Units 15:15 15:15 WBC 7.1 (4.5-11.0) X10^3/uL RBC 4.16 (4.0-5.2) X10^6/uL Hgb 11.9 L (12.0-16.0) g/dL Hct 35.4 L (36-46) % MCV 85.1 (80-100) fL MCH 28.6 (26-34) PG MCHC 33.6 (30-36) % RDW 13.7 (11.6-14.8) % Plt Count 393 (150-400) X10^3/uL Neut % (Auto) 43.7 L (50-75) % Lymph % (Auto) 45.0 H (25-40) % [place] % (Auto) 6.8 (3-14) % Eos % (Auto) 3.1 (2-4) % Baso % (Auto) 1.4 (0-2) % Neut # (Auto) 3100 (1712-0487) /uL Lymph # (Auto) 3200 (6480-1669) /uL [place] # (Auto) 500 (0-900) /uL Eos # (Auto) 200 (0-450) /uL Baso # (Auto) 100 (0-100) /uL Sodium 133 L (137-145) mmol/L Potassium 3.8 (3.4-5.1) mmol/L Chloride 98 (98-107) mmol/L Carbon Dioxide 27 (22-32) mmol/L BUN 16 (7-17) mg/dL Creatinine 0.62 (0.52-1.04) mg/dL Estimated GFR > 60 (>60) mL/min BUN/Creatinine Ratio 25.8 H (6-22) Glucose 227 H (80-110) mg/dL Calcium 8.9 (8.4-10.2) mg/dL Total Bilirubin 0.3 (0.2-1.3) mg/dL AST 47 H (14-36) IU/L ALT 32 (<35) IU/L Alkaline Phosphatase 70 (38-126) U/L Total Protein 7.5 (6.3-8.2) g/dL Albumin 4.0 (3.5-5.0) g/dL Globulin 3.5 (1.7-4.1) g/dL Albumin/Globulin Ratio 1.1 (1.0-2.8) Lipase 128 (23-300) U/L Urine Dip Bedside Urine Glucose Negative Bedside Urine Bilirubin - Negative Bedside Urine Ketone - Negative Urine Specific [place] 1.005 Bedside Urine Occult Blood - Negative Bedside Urine pH 6.0 Bedside Urine Protein - Negative Bedside Urine Urobilinogen - Negative Bedside Urine Nitrite - Negative Bedside Urine Leukocytes - Negative Esterase Point of care testing: Urine Dip Bedside Urine Glucose Negative Bedside Urine Bilirubin - Negative Bedside Urine Ketone - Negative Urine Specific [place] 1.005 Bedside Urine Occult Blood - Negative Bedside Urine pH 6.0 Bedside Urine Protein - Negative Bedside Urine Urobilinogen - Negative Bedside Urine Nitrite - Negative Bedside Urine Leukocytes - Negative Esterase Imaging Data CT scan - abdomen/pelvis: Radiologist's Impression: PROCEDURE:? CT ABDOMEN PELVIS W CON ? INDICATIONS:? Suprapubic/right lower quadrant pain history of appendectomy ? TECHNIQUE:? After the administration of oral and IV contrast, axial sections were acquired from the lung bases to the pubic symphysis.? Coronal and sagittal reformats were performed.? For radiation dose reduction, the following was used:? automated exposure control, adjustment of mA and/or kV according to patient size. ? COMPARISON:? [facility], CT, CT ABDOMEN PELVIS W CON, 03/24/2022, 17:01. ? FINDINGS:? Image quality:? Excellent.? ? Lung bases:? Unremarkable.? Small hiatal hernia. ? There is a calcified lymph node in the posterior mediastinum, compatible with an old granuloma.? There is a 2 cm nodular density in the lateral aspect of the right breast. Heart:? Heart size is normal.? Severe coronary artery calcification. ? ? ABDOMEN: Liver:? Unremarkable.? ? Gallbladder:? Unremarkable.? ? Biliary ducts:? Unremarkable.? ? Pancreas:? Unremarkable.? ? Spleen:? Unremarkable.? ? Adrenal Glands:? Unremarkable.? ? Kidneys and Ureters:? Unremarkable.? ? ? Stomach and Bowel:? Stomach, small bowel loops, and colon are unremarkable.? There is a large amount of stool in colon.? Appendix is absent compatible with appendectomy. Peritoneum:? No abnormal intraperitoneal fluid.? No free air.? ? Ventral Wall: ? No hernia.? Abdominal Nodes:? No retroperitoneal or mesenteric adenopathy by size criteria.? Vessels:? Aorta and inferior vena cava are normal in size.? ? PELVIS: Pelvic Organs:? Unremarkable.? ? Bladder:? Unremarkable.? ? Pelvic Nodes: No enlarged lymph nodes.? Miscellaneous: No inguinal hernias are seen. ? ? ? Bones:? Moderate to severe levoscoliosis.? Degenerative disc and facet disease in lumbar spine.? Osteopenia.? There are numerous small lucencies are noted in thoracic and lumbar spine, sacrum, bony pelvis and proximal femurs. ? ? IMPRESSION:? ? 1. A cause for right lower quadrant pain is not identified.? 2. A large amount of stool in colon. 3. Scoliosis and degenerative changes in lumbar spine. 4. Numerous small lucencies in osseous structures.? Consider MRI with and without contrast for further evaluation.? MDM Narrative Medical decision making narrative: Patient's CT scan does show large amount of stool in the colon which given her presentation is consistent with constipation. There was no indication of the CT scan of other inter abdominal acute pathology. There is no indication for antibiotics. No indication for surgical consultation. Urinalysis does not show any signs of an infection. Low suspicion for landscape painter pathology given the location of her discomfort. I did discuss this with her. We did discuss the use of laxatives. She was given return precautions and follow-up instructions. She expressed understanding. Discharge Plan Departure Patient Disposition: Home Clinical Impression: Constipation, Abdominal pain Instructions: DI for Abdominal Pain-Adult, DI for Constipation Activity Restrictions/Additional Instructions: I do recommend that you continue to take all of your medications as directed. I also recommend that you take the MiraLax like we discussed. This will result in you eventually having a bowel movement but it may take several doses of this m edicine. Please return to the emergency department for any new or worsening symptoms. Prescriptions: No Action ciclopirox 8 % solution 1 applic TOPICAL DAILY Patient Comments: apply topically to affected area OF RASH daily omeprazole 20 mg capsule,delayed release(DR/EC) 20 mg PO DAILY albuterol sulfate [ProAir HFA] 90 mcg/actuation HFA aerosol inhaler 1 puff INHALATION DAILY Alphagan P 0.1 % drops 1 drp EYE-BOTH DAILY aspirin 81 mg tablet,delayed release (DR/EC) 81 mg PO DAILY lisinopril 40 mg tablet 40 mg PO DAILY loratadine 10 mg tablet 10 mg PO DAILY ofloxacin 0.3 % drops 1 drp EYE-BOTH DAILY insulin glargine [Lantus Solostar U-100 Insulin] 100 unit/mL (3 mL) insulin pen 40 unit SUBCUT BEDTIME 90 Days Qty: 36 0RF Patient Comments: 25 units every bedtime (DME) pen needle, diabetic 31 gauge x 3/16 needle See Rx Instructions .Route Qty: 100 0RF Rx Instructions: For use with insulin pen, use one nightly Referrals: ProviderMaximo [Primary Care Provider] - Stand Alone Forms: Patient Portal/API
--- NOTE | 2022-07-11 15:24 | DI.CT.S_ITS ---
PROCEDURE: CT ABDOMEN PELVIS W CON INDICATIONS: Suprapubic/right lower quadrant pain history of appendectomy TECHNIQUE: After the administration of oral and IV contrast, axial sections were acquired from the lung bases to the pubic symphysis. Coronal and sagittal reformats were performed. For radiation dose reduction, the following was used: automated exposure control, adjustment of mA and/or kV according to patient size. COMPARISON: [facility], CT, CT ABDOMEN PELVIS W CON, 03/24/2022, 17:01. FINDINGS: Image quality: Excellent. Lung bases: Unremarkable. Small hiatal hernia. There is a calcified lymph node in the posterior mediastinum, compatible with an old granuloma. There is a 2 cm nodular density in the lateral aspect of the right breast. Heart: Heart size is normal. Severe coronary artery calcification. ABDOMEN: Liver: Unremarkable. Gallbladder: Unremarkable. Biliary ducts: Unremarkable. Pancreas: Unremarkable. Spleen: Unremarkable. Adrenal Glands: Unremarkable. Kidneys and Ureters: Unremarkable. Stomach and Bowel: Stomach, small bowel loops, and colon are unremarkable. There is a large amount of stool in colon. Appendix is absent compatible with appendectomy. Peritoneum: No abnormal intraperitoneal fluid. No free air. Ventral Wall: No hernia. Abdominal Nodes: No retroperitoneal or mesenteric adenopathy by size criteria. Vessels: Aorta and inferior vena cava are normal in size. PELVIS: Pelvic Organs: Unremarkable. Bladder: Unremarkable. Pelvic Nodes: No enlarged lymph nodes. Miscellaneous: No inguinal hernias are seen. Bones: Moderate to severe levoscoliosis. Degenerative disc and facet disease in lumbar spine. Osteopenia. There are numerous small lucencies are noted in thoracic and lumbar spine, sacrum, bony pelvis and proximal femurs. IMPRESSION: 1. A cause for right lower quadrant pain is not identified. 2. A large amount of stool in colon. 3. Scoliosis and degenerative changes in lumbar spine. 4. Numerous small lucencies in osseous structures. Consider MRI with and without contrast for further evaluation. Dictated by: Madina Sanchez M.D. on 07/11/2022 at 16:41 Approved by: Madina Sanchez M.D. on 07/11/2022 at 16:51
[2022-07-11 15:44] LABS: Add Manual Diff / Slide Review NO; Basophils Absolute Auto 100 /uL (0-100); Basophils Percent Auto 1.4 % (0-2); Eosinophils Absolute Auto 200 /uL (0-450); Eosinophils Percent Auto 3.1 % (2-4); Hematocrit 35.4 % (36-46); Hemoglobin 11.9 g/dL (12.0-16.0); Lymphocytes Absolute Auto 3200 /uL (1100-4500); Mean Corpuscular HGB Conc 33.6 % (30-36); Mean Corpuscular Hemoglobin 28.6 PG (26-34); Mean Corpuscular Volume 85.1 fL (80-100); Monocytes Absolute Auto 500 /uL (0-900); Monocytes Percent Auto 6.8 % (3-14); Neutrophils Absolute Auto 3100 /uL (1500-7000); Neutrophils Percent Auto 43.7 % (50-75); Platelet Count 393 X10^3/uL (150-400); Red Blood Cell Count 4.16 X10^6/uL (4.0-5.2); Red Cell Distribution Width 13.7 % (11.6-14.8); White Blood Cell Count 7.1 X10^3/uL (4.5-11.0)
[2022-07-11 15:51] LABS: Alanine Aminotransferase 32 IU/L (<35); Albumin Globulin Ratio 1.1 (1.0-2.8); Alkaline Phosphatase 70 U/L (38-126); Aspartate Aminotransferase 47 IU/L (14-36); BUN Creatinine Ratio 25.8 (6-22); Bilirubin Total 0.3 mg/dL (0.2-1.3); Blood Urea Nitrogen 16 mg/dL (7-17); Calcium 8.9 mg/dL (8.4-10.2); Carbon Dioxide 27 mmol/L (22-32); Chloride 98 mmol/L (98-107); Estimated Glomerular Filt Rate > 60 mL/min (>60); Globulin 3.5 g/dL (1.7-4.1); Glucose 227 mg/dL (80-110); HEMOLYSIS 19 (0-50); Lipase 128 U/L (23-300); Potassium 3.8 mmol/L (3.4-5.1); Sodium 133 mmol/L (137-145); Total Protein 7.5 g/dL (6.3-8.2)
[2022-07-11 17:07] VITALS: BP 143/67; PULSE 79; O2SAT 98
[2022-07-11 17:30] VITALS: BP 138/72; PULSE 77; O2SAT 97
== END 2022-07-11 17:56 | disposition home or self-care (01) ==
PROVIDERS: Emergency Provider Emergency Medicine; Family Provider Internal Medicine
DX: R10.32 Left lower quadrant pain (principal); K59.00 Constipation, unspecified; Z79.899 Other long term (current) drug therapy
CPT/HCPCS: 36415; 74177; 80053; 81003; 83690; 85025; 99284; Q9967

== ENCOUNTER → 2024-05-08 10:55 | Outpatient (CLI) | payer OTHER, SELFPAY ==
[2022-03-24 20:18] VITALS: BMI 22.4
--- NOTE | 2024-05-08 10:57 | DI.CT.S_ITS ---
PROCEDURE: CT HEAD/BRAIN WO CON INDICATIONS: presence of artificial eye TECHNIQUE: Noncontrast 4.5 mm thick angled axial sections acquired from the foramen magnum to the vertex, with coronal and sagittal reformats. For radiation dose reduction, the following was used: automated exposure control, adjustment of mA and/or kV according to patient size. COMPARISON: [facility], CT, CT HEAD/BRAIN WO CON, 03/24/2022, 17:01. FINDINGS: Image quality: Diagnostic. CSF spaces: Basal cisterns are patent. No extra-axial fluid collections. The ventricles are symmetric in size and shape. Brain: No intracranial bleeds or masses. There is cerebral volume loss for age, with resultant ventricular and sulcal prominence. There are periventricular and deep white matter chronic small vessel ischemic changes. There is intracranial internal carotid artery atherosclerosis. Skull and face: Calvarium and visualized facial bones appear intact, without suspicious lesions. 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 The right globe is within normal limits. Sinuses: Visualized sinuses and mastoids are clear. 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 Dictated by: Darien Epps M.D. on 05/08/2024 at 12:09 Approved by: Darien Epps M.D. on 05/08/2024 at 12:12
== END ==
PROVIDERS: Family Provider Internal Medicine; Referring Provider Family Medicine; Visit Provider Family Medicine
DX: I69.998 Other sequelae following unspecified cerebrovascular disease (principal); H53.8 Other visual disturbances; Z97.0 Presence of artificial eye; R51.9 Headache, unspecified; I65.29 Occlusion and stenosis of unspecified carotid artery
CPT/HCPCS: 70450

== ENCOUNTER 2024-05-08 11:23 | Emergency (ER) | payer OTHER, SELFPAY ==
[2022-03-24 20:18] VITALS: BMI 22.4
[2024-05-08 11:27] VITALS: BP 161/71; PULSE 77; RESP 16; TEMP 36.4; O2SAT 100; BMI 21.1
[2024-05-08 12:20] LABS: COVID-19 CEPHEID 4-PLEX PCR Negative (Negative); Influenza A - CEPHEID Flu A NEGATIVE (NEGATIVE); Influenza B - CEPHEID Flu B NEGATIVE (NEGATIVE); Respiratory Syncytial Virus Negative (Negative)
[2024-05-08 14:03] VITALS: PULSE 75; O2SAT 91
[2024-05-08 14:04] VITALS: BP 177/83; PULSE 75; RESP 20; O2SAT 100
--- NOTE | 2024-05-08 14:26 | PC.NURSE ---
Pt reports intermittent hissing sound in left ear.
--- NOTE | 2024-05-08 14:34 | ED.URI ---
HPI - URI/Sore Throat General Chief Complaint: Upper Respiratory Symptoms Stated Complaint: Ear pain in both ears, nose pain Time Seen by Provider: 05/08/24 14:29 Source: patient Mode of arrival: Ambulatory History of Present Illness HPI Narrative: Patient is a 63-year-old female history of glaucoma hypothyroidism hypertension presenting today with variety of symptoms. She reports that she has had some upper respiratory symptoms headache ear clogging nasal congestion ongoing for the past 2-3 days. No fever chills cough or sore throat. She feels like she has a hissing sound coming out for a left ear. She also wants pressure in her eyes checked because she does have glaucoma. She has eye pain that comes and goes but no significant vision change. Related Data Home Medications Medication Instructions Recorded Confirmed albuterol sulfate 90 mcg/actuation 1 puff inhalation DAILY 03/24/22 04/21/22 aerosol inhaler (ProAir HFA) aspirin 81 mg tablet,delayed 81 mg PO DAILY 03/24/22 04/21/22 release brimonidine 0.1 % eye drops 1 drp EYE-BOTH DAILY 03/24/22 04/21/22 (Alphagan P) ciclopirox 8 % topical solution 1 applic topical DAILY rash 03/24/22 04/21/22 lisinopril 40 mg tablet 40 mg PO DAILY 03/24/22 04/21/22 loratadine 10 mg tablet 10 mg PO DAILY 03/24/22 04/21/22 ofloxacin 0.3 % eye drops 1 drp EYE-BOTH DAILY 03/24/22 04/21/22 omeprazole 20 mg capsule,delayed 20 mg PO DAILY 03/24/22 04/21/22 release Previous Rx's Medication Instructions Recorded insulin glargine 100 unit/mL (3 40 unit (0.4 mL) SUBCUT BEDTIME 90 03/26/22 mL) subcutaneous pen (Lantus days #36 mL Solostar U-100 Insulin) pen needle, diabetic 31 gauge x #100 ea 03/26/2205/26 Allergies Allergy/AdvReac Type Severity Reaction Status Date / Time erythromycin base Allergy Mild RASH Verified 04/21/22 11:13 [From ERYTHROCIN] repaglinide [From PRANDIN] Allergy Mild UNSURE Verified 04/21/22 11:13 Sulfa (Sulfonamide Allergy Mild HIVES Verified 04/21/22 11:13 Antibiotics) [SULFA (SULFONAMIDE ANTIBIOTICS)] Patient History Medical History Asthma Surgical History Hx of appendectomy History of cataract surgery Family History Father Diabetes mellitus Mother Diabetes mellitus Social History household members: spouse Smoking Status: Never smoker alcohol intake: current Smoking Status: Never smoker alcohol intake frequency: a few times a month Exam Initial Vital Signs Initial Vital Signs: Vital Signs Temperature 97.6 F 05/08/24 11:27 Pulse Rate 77 05/08/24 11:27 Respiratory Rate 16 05/08/24 11:27 Blood Pressure 161/71 H 05/08/24 11:27 Pulse Oximetry 100 05/08/24 11:27 Oxygen Delivery Method Room Air 05/08/24 11:27 GENERAL: Alert 63-year-old female and in [no acute] distress. HEENT: Head atraumatic,EOMI, pupils reactive, face symmetric, [moist] mucous membranes Left ear cerumen impaction, after irrigation no evidence of erythema Canal is still narrow Right ear within normal limits EYE: Right eye pressure 24 mmHg with repeat at 21 mmHg Left eye prosthetic CARDIOVASCULAR: Regular rate and rhythm without murmurs, rubs or gallops. RESPIRATORY: Breath sounds equal bilaterally, no wheezes rales or rhonchi. ABDOMEN: Soft, nontender. Normoactive bowel sounds all 4 quadrants. No guarding or rebound. EXTREMITIES: Normal range of motion, no clubbing or edema. Neurovascularly intact NEUROLOGICAL: Alert and oriented x4.Normal gait and speech. Cranial nerves II through XII grossly intact. SKIN: Warm, dry, no laceration, no petechiae, no rashes or lesions. Course Orders Ordered: ED Orders 05/08/24 11:35 Covid-19 + FLU A/B + RSV - PCR Stat Discontinued Medications Proparacaine HCl (Proparacaine 0.5% Ophth [place]) 1 drops EYE-BOTH NOW ONE Stop: 05/08/24 14:36 Last Admin: 05/08/24 15:00 Dose: 1 drop Documented By: NICOLE Vital Signs Vital signs: Vital Signs - 8 hr 05/08/24 11:27 05/08/24 14:03 05/08/24 14:04 Temperature 97.6 F Pulse Rate 77 75 75 Respiratory Rate 16 Blood Pressure 161/71 H Pulse Oximetry 100 91 100 Oxygen Delivery Method Room Air Room Air 05/08/24 14:04 05/08/24 15:30 05/08/24 15:35 Temperature Pulse Rate 68 75 Respiratory Rate 20 18 Blood Pressure 177/83 H 146/65 H 146/65 H Pulse Oximetry 100 99 Oxygen Delivery Method Room Air MDM - URI/Sore Throat Lab Data Labs: Lab Results 05/08/24 Range/Units 11:35 SARS-CoV-2 (PCR) Negative (Negative) Influenza A (RT-PCR) Flu a negative (NEGATIVE) Influenza B (RT-PCR) Flu b negative (NEGATIVE) RSV (PCR) Negative (Negative) MDM Narrative Medical decision making narrative: Patient is 63-year-old female presenting today with upper respiratory issues. Also complaining of some left ear discomfort and whistling. He was found to have significant cerumen impaction. Her left ear was irrigated feeling better no sign of infection afterwards. Her viral panel was negative Pressure in right eye is 24 mmHg and then 21 mmHg left eye is prosthetic. No evidence of acute glaucoma at time Patient likely has a viral syndrome Discharge Plan Departure Patient Disposition: Home Clinical Impression: Cerumen impaction, Viral illness Instructions: DI for Cerumen Impaction Activity Restrictions/Additional Instructions: *You have been diagnosed with cerumen impaction *What to do: At this time please follow up with your primary care provider. No need for antibiotics at this time. Please drink fluids *Continue to take medications as directed *Follow up with your primary care provider in 2-3 days or call [phone] *Return to ER if you should have [or] any new, worsening or concerning symptoms Prescriptions: No Action ciclopirox 8 % solution 1 applic TOPICAL DAILY Patient Comments: apply topically to affected area OF RASH daily omeprazole 20 mg capsule,delayed release(DR/EC) 20 mg PO DAILY albuterol sulfate [ProAir HFA] 90 mcg/actuation HFA aerosol inhaler 1 puff INHALATION DAILY Alphagan P 0.1 % drops 1 drp EYE-BOTH DAILY aspirin 81 mg tablet,delayed release (DR/EC) 81 mg PO DAILY lisinopril 40 mg tablet 40 mg PO DAILY loratadine 10 mg tablet 10 mg PO DAILY ofloxacin 0.3 % drops 1 drp EYE-BOTH DAILY insulin glargine [Lantus Solostar U-100 Insulin] 100 unit/mL (3 mL) insulin pen 40 unit SUBCUT BEDTIME 90 Days Qty: 36 0RF Patient Comments: 25 units every bedtime (DME) pen needle, diabetic 31 gauge x 3/16 needle See Rx Instructions .Route Qty: 100 0RF Rx Instructions: For use with insulin pen, use one nightly Referrals: [facility] [Primary Care Provider] - Stand Alone Forms: Patient Portal/API/Survey
[2024-05-08] MEDS: PROPARACAINE 0.5% OPHTH SOL 1 DROPS EYE-BOTH (15:00)
[2024-05-08 15:30] VITALS: BP 146/65; PULSE 68; O2SAT 100
[2024-05-08 15:35] VITALS: BP 146/65; PULSE 75; RESP 18; O2SAT 99
== END 2024-05-08 15:36 | disposition home or self-care (01) ==
PROVIDERS: Physician Assistant; Emergency Provider Emergency Medicine; Family Provider Internal Medicine
DX: B34.9 Viral infection, unspecified (principal); H61.22 Impacted cerumen, left ear; H40.9 Unspecified glaucoma; I69.998 Other sequelae following unspecified cerebrovascular disease; H53.8 Other visual disturbances; Z97.0 Presence of artificial eye; R51.9 Headache, unspecified; I65.29 Occlusion and stenosis of unspecified carotid artery
CPT/HCPCS: 0241U; 69209; 70450; 99282; 99284

== ENCOUNTER → 2024-12-25 11:39 | Outpatient (CLI) | payer MEDICARE, OTHER, SELFPAY ==
[2022-03-24 20:18] VITALS: BMI 22.4
--- NOTE | 2024-12-25 11:42 | DI.MG.S_ITS ---
MM diagnostic mammo unilat RT: 12/25/2024. BI-RADS: 1 CLINICAL: 64-year old female for right diagnostic mammogram. The patient presents for additional evaluation of an inconclusive screening mammogram - asymmetry. Tyrer- Cuzick lifetime risk of 7.6%. No personal or first-degree family history of breast cancer. Current reported family history of breast cancer: paternal aunt and second paternal aunt. PRIOR EXAMS Outside priors 09/02/2024, 04/25/2022, and 08/27/2018. MAMMOGRAPHY TECHNIQUE: 2D and 3D (tomosynthesis) digital mammographic views obtained, with additional images as needed for full coverage. Current study was also evaluated with a Computer Aided Detection (CAD) system. DENSITY Right: C. The breast is heterogeneously dense, which may obscure small masses. MAMMOGRAPHY FINDINGS Right: CC only, Outer, Posterior depth: The previously seen asymmetry is no longer visualized. No suspicious mass, asymmetry, microcalcification, or other abnormality seen. IMPRESSION: Right * No evidence of malignancy. RECOMMENDATIONS Bilateral * Annual screening mammography (due August 2025). COMMENTS: Findings and recommendations were conveyed to the patient during today's evaluation. OVERALL ASSESSMENT CATEGORY BI-RADS-1: Negative. The [employer] recommends annual screening mammography beginning at age 40 for women with average risk of breast cancer. ELECTRONICALLY SIGNED: Becka Pickering M.D. on 12/25/2024 at 01:51:25 PM PT Interpreting Station ID: [id number]
== END ==
PROVIDERS: Family Provider Internal Medicine; Visit Provider Family Medicine
DX: R92.30 Dense breasts, unspecified (principal); Z80.3 Family history of malignant neoplasm of breast
CPT/HCPCS: 77065; G0279